=== PATIENT | male | born 1980 | race African-American/Black ===

== ENCOUNTER 2018-10-16 01:16 | Emergency (ER) | payer MEDICAID ==
[~2018-10-16] VITALS: Ht 182.9 cm; Wt 78.5 kg
[2018-10-16] MEDS ORDERED: HYDR8TAB2 PO (01:36)
[2018-10-16] MEDS ORDERED: INSU100V7 SQ (01:36)
[2018-10-16] MEDS ORDERED: HYDROCODONE/APAP 5-325MG TABLET ONE (02:08)
[2018-10-16] MEDS ORDERED: diphenhydrAMINE 50 MG CAPSULE ONE (02:08)
[2018-10-16] MEDS ORDERED: HYDROCODONE/APAP 10-325 MG TABLET PO ONE (02:15)
[2018-10-16] MEDS ORDERED: diphenhydrAMINE 50 MG CAPSULE PO ONE (02:15)
--- NOTE | 2018-10-16 02:17 | NUR ---
Patient given written and verbal discharge instructions. Patient verbalizes understanding of instructions. Patient is ambulatory with steady gait. Refuses offer of longterm placement. Patient given list of available shelters in surrounding area. Patient stated he's currently residing in some arranged living arrangement refuses to sign paper.
[2018-10-16] MEDS ORDERED: HYDROCODONE/APAP 10-325 MG TABLET ONE (02:27)
== END 2018-10-16 02:30 | disposition home or self-care (01) ==
LOC: ER 01:27
DX: D57.00 Hb-SS disease with crisis, unspecified (principal); G89.29 Other chronic pain; M25.512 Pain in left shoulder; M25.511 Pain in right shoulder; M25.521 Pain in right elbow; M25.522 Pain in left elbow; M25.551 Pain in right hip; M25.552 Pain in left hip; E10.9 Type 1 diabetes mellitus without complications; Z88.8 Allergy status to other drugs, medicaments and biological substances; Z88.5 Allergy status to narcotic agent; Z79.4 Long term (current) use of insulin; Z79.899 Other long term (current) drug therapy
CPT/HCPCS: 99283; Q0163; A4663

== ENCOUNTER 2023-12-13 14:42 | Emergency (ER) | payer MEDICAID ==
[~2023-12-13] VITALS: Ht 182.9 cm; Wt 72.6 kg
[~2023-12-13 14:42] MED LIST: HYDR8TAB2 PO; INSU100V7 SQ
[2023-12-13] MEDS ORDERED: diphenhydrAMINE 50 MG/1 ML VIAL ONE ×2 (15:26→17:58)
[2023-12-13] MEDS ORDERED: HYDROMORPHONE 2 MG/1 ML DISP.SYRIN ONE ×2 (15:26→16:21)
[2023-12-13] MEDS: IV NS 1000 ML 1,000 ML IV ONE ×2 (15:30→16:42)
[2023-12-13] MEDS: HYDROMORPHONE 1 MG/1 ML DISP.SYRIN IV ONE ×3 (15:33→18:12)
[2023-12-13] MEDS: diphenhydrAMINE 50 MG/1 ML VIAL IV ONE ×2 (15:33→18:10)
[2023-12-13 16:18] LABS: EOSINOPHILS # (AUTO) 0.1 K/uL (0.0-0.7); EOSINOPHILS % (AUTO) 0.7 % (0.0-7.0); HEMATOCRIT 27.3 % (36.7-47.1); HEMOGLOBIN 8.5 g/dL (12.5-16.3); LYMPHOCYTES # (AUTO) 0.1 K/uL (0.8-4.8); LYMPHOCYTES % (AUTO) 1.1 % (20.5-51.5); MEAN CORPUSCULAR HEMOGLOBIN 23.6 uug (23.8-33.4); MEAN CORPUSCULAR HGB CONC 31 g/dL (32.5-36.3); MEAN CORPUSCULAR VOLUME 75.5 fL (73.0-96.2); MONOCYTES % (AUTO) 9.1 % (0.0-11.0); NEUTROPHILS # (AUTO) 9.5 K/uL (1.8-8.9); NEUTROPHILS % (AUTO) 89.1 % (38.5-71.5); PLATELET COUNT (AUTO) 665 K/uL (152-348); RED BLOOD CELL COUNT(AUTO) 3.61 MIL/uL (4.06-5.63); RED CELL DISTRIBUTION WIDTH 20.4 % (12.1-16.2); WHITE BLOOD COUNT (AUTO) 10.7 K/uL (3.6-10.2)
[2023-12-13 16:22] LABS: DIFFERENTIAL COMMENT 1
[2023-12-13 16:24] LABS: CALCIUM 9.4 mg/dL (8.5-10.1); CREATININE 1.5 mg/dL (0.6-1.3); POTASSIUM 5.4 mmol/L (3.5-5.1)
[2023-12-13] MEDS ORDERED: HYDR-3980 PO (17:45)
[2023-12-13] MEDS ORDERED: HYDROMORPHONE 1 MG/1 ML DISP.SYRIN ONE (17:59)
[2023-12-13] MEDS ORDERED: ONDANSETRON 4 MG/2 ML VIAL ONE (18:04)
[2023-12-13 18:14] VITALS: BP 131/71; TEMP 98.3; O2SAT 96
== END 2023-12-13 18:39 | disposition home or self-care (01) ==
LOC: ER 14:43
DX: D57.00 Hb-SS disease with crisis, unspecified (principal); E10.22 Type 1 diabetes mellitus with diabetic chronic kidney disease; Z98.890 Other specified postprocedural states; N18.9 Chronic kidney disease, unspecified; Z79.4 Long term (current) use of insulin; Z79.891 Long term (current) use of opiate analgesic; Z88.5 Allergy status to narcotic agent; Z88.1 Allergy status to other antibiotic agents
CPT/HCPCS: 99284; 96374; 96361; 96375; 80048; 85025; 36415; 96376; J1200 ×2; J2405; J1170 ×3; J7040; A4606; A4663

== ENCOUNTER 2023-12-29 15:23 | Inpatient (IN) | payer MEDICAID ==
[~2023-12-29] VITALS: Ht 180.3 cm; Wt 81.6 kg
[~2023-12-29 15:23] MED LIST changes: +HYDR-3980 PO
[2023-12-29] MEDS ORDERED: diphenhydrAMINE 50 MG/1 ML VIAL ONE ×3 (16:06→21:23)
[2023-12-29] MEDS ORDERED: HYDROMORPHONE 2 MG/1 ML DISP.SYRIN ONE ×2 (16:06→17:40)
[2023-12-29 16:18] LABS: BASOPHILS # (AUTO) 0.1 K/UL (0.0-0.2); BASOPHILS % (AUTO) 1.5 % (0.0-2.0); EOSINOPHILS # (AUTO) 0.1 K/uL (0.0-0.7); EOSINOPHILS % (AUTO) 0.9 % (0.0-7.0); HEMATOCRIT 27.5 % (36.7-47.1); HEMOGLOBIN 8.5 g/dL (12.5-16.3); LYMPHOCYTES % (AUTO) 11.2 % (20.5-51.5); MEAN CORPUSCULAR HEMOGLOBIN 23.7 uug (23.8-33.4); MEAN CORPUSCULAR HGB CONC 31 g/dL (32.5-36.3); MEAN CORPUSCULAR VOLUME 76.5 fL (73.0-96.2); MONOCYTES # (AUTO) 0.6 K/uL (0.1-1.30); MONOCYTES % (AUTO) 6.4 % (0.0-11.0); NEUTROPHILS # (AUTO) 7.2 K/uL (1.8-8.9); PLATELET COUNT (AUTO) 570 K/uL (152-348); RED CELL DISTRIBUTION WIDTH 24.4 % (12.1-16.2)
[2023-12-29] MEDS: IV NS 1000 ML 1,000 ML IV ONE ×3 (16:18→17:49)
[2023-12-29] MEDS: HYDROMORPHONE 1 MG/1 ML DISP.SYRIN IV ONE ×2 (16:18→17:47)
[2023-12-29] MEDS: diphenhydrAMINE 50 MG/1 ML VIAL IV ONE ×2 (16:18→17:49)
[2023-12-29 16:31] LABS: CALCIUM 8.8 mg/dL (8.5-10.1); CREATININE 1.7 mg/dL (0.6-1.3); POTASSIUM 5.6 mmol/L (3.5-5.1)
[2023-12-29 16:32] LABS: DIFFERENTIAL COMMENT 1
[2023-12-29 17:07] LABS: BASOPHILS % (MANUAL) 0 % (0-2); EOSINOPHILS % (MANUAL) 1 % (0-8); LYMPHOCYTES % (MANUAL) 15 % (20-40); MONOCYTES % (MANUAL) 4 % (2-10); NEUTROPHILS % (MANUAL) 80 % (42-75)
[2023-12-29 17:30] LABS: IRON, SERUM 37 ug/dL (50-175)
[2023-12-29] MEDS ORDERED: REMEDY ESSENTIAL ZINC PASTE 113 GM TP PRN (18:00)
[2023-12-29] MEDS ORDERED: DEXTROSE 50% 50 ML DISP.SYRIN IV PRN (18:00)
[2023-12-29] MEDS ORDERED: MAGNESIUM HYDROXIDE 30 ML LIQUID UDC PO PRN (18:00)
[2023-12-29] MEDS ORDERED: ONDANSETRON 4 MG/2 ML VIAL IV PRN (18:00)
[2023-12-29] MEDS ORDERED: ACETAMINOPHEN 325 MG TABLET PO PRN (18:00)
[2023-12-29] MEDS ORDERED: HYDROCODONE/APAP 10-325 MG TABLET PO PRN (18:00)
[2023-12-29] MEDS: HYDROMORPHONE 1 MG/1 ML DISP.SYRIN IV PRN ×2 (19:56→21:30)
[2023-12-29] MEDS: BLOOD SUGAR DIAGNOSTIC 1 EACH STRIP VI SCH (20:11)
[2023-12-29] MEDS ORDERED: INSULIN REGULAR, HUMAN 1000 UNIT/10 ML VIAL ONE ×2 (20:15→20:29)
[2023-12-29] MEDS: INSULIN REGULAR, HUMAN 1000 UNIT/10 ML VIAL SQ PRN (20:23)
[2023-12-29] MEDS ORDERED: HYDROCODONE/APAP 10-325 MG TABLET PO SCH (21:00)
[2023-12-29] MEDS ORDERED: HYDROMORPHONE 1 MG/1 ML DISP.SYRIN ONE (21:29)
[2023-12-29] MEDS: diphenhydrAMINE 50 MG/1 ML VIAL IV PRN (21:30)
[2023-12-29 22:15] VITALS: BP 140/71; TEMP 98.6; O2SAT 100
[2023-12-29 23:00] VITALS: BP 105/77; O2SAT 100
[2023-12-29] MEDS: INSULIN REGULAR, HUMAN 100 UNITS in IV NORMAL SALINE 100 ML IV PRN (23:20)
[2023-12-29] MEDS: IV NS 1000 ML 1,000 ML IV PRN (23:36)
[2023-12-30] VITALS (18 sets, daily range): BP systolic 89–132; BP diastolic 62–85; TEMP 97.5–98.7; O2SAT 95–100
[2023-12-30] MEDS: BLOOD SUGAR DIAGNOSTIC 1 EACH STRIP VI SCH ×4 (00:26→19:55)
[2023-12-30] MEDS ORDERED: DEXTROSE 50% 50 ML DISP.SYRIN IV PRN ×2 (08:30→17:00)
[2023-12-30] MEDS ORDERED: INSULIN REGULAR, HUMAN 300 UNITS/3 ML VIAL SQ PRN (08:30)
[2023-12-30 09:05] LABS: ALBUMIN 2.7 g/dL (3.4-5.0); BILIRUBIN,TOTAL 0.5 mg/dL (0.2-1.0); CALCIUM 8.7 mg/dL (8.5-10.1); CREATININE 1.1 mg/dL (0.6-1.3); MAGNESIUM 1.9 mg/dL (1.8-2.4); POTASSIUM 4.9 mmol/L (3.5-5.1); TOTAL PROTEIN, SERUM 7.7 g/dL (6.4-8.2)
[2023-12-30] MEDS: diphenhydrAMINE 50 MG/1 ML VIAL IV PRN (09:30)
[2023-12-30 09:33] LABS: BASOPHILS # (AUTO) 0.2 K/UL (0.0-0.2); BASOPHILS % (AUTO) 2.1 % (0.0-2.0); EOSINOPHILS # (AUTO) 0.7 K/uL (0.0-0.7); EOSINOPHILS % (AUTO) 6.7 % (0.0-7.0); HEMATOCRIT 28.2 % (36.7-47.1); HEMOGLOBIN 8.8 g/dL (12.5-16.3); LYMPHOCYTES # (AUTO) 2.1 K/uL (0.8-4.8); LYMPHOCYTES % (AUTO) 19.1 % (20.5-51.5); MEAN CORPUSCULAR HEMOGLOBIN 23.7 uug (23.8-33.4); MEAN CORPUSCULAR HGB CONC 31 g/dL (32.5-36.3); MEAN CORPUSCULAR VOLUME 75.5 fL (73.0-96.2); MONOCYTES # (AUTO) 0.5 K/uL (0.1-1.30); MONOCYTES % (AUTO) 4.1 % (0.0-11.0); NEUTROPHILS # (AUTO) 7.5 K/uL (1.8-8.9); PLATELET COUNT (AUTO) 483 K/uL (152-348); RED BLOOD CELL COUNT(AUTO) 3.73 MIL/uL (4.06-5.63); RED CELL DISTRIBUTION WIDTH 23.2 % (12.1-16.2)
[2023-12-30] MEDS: HYDROMORPHONE 2 MG/1 ML DISP.SYRIN IV PRN (09:33)
[2023-12-30 09:38] LABS: DIFFERENTIAL COMMENT 1
[2023-12-30] MEDS: INSULIN REGULAR, HUMAN 1000 UNIT/10 ML VIAL SQ PRN ×2 (09:41→19:59)
[2023-12-30] MEDS: IV NS 1000 ML 1,000 ML IV PRN (15:25)
[2023-12-30] MEDS: INSULIN GLARGINE,HUM 300 UNITS/3 ML CARTRIDGE SQ SCH (20:00)
[2023-12-31 06:00] VITALS: BP 119/70; TEMP 98.4; O2SAT 97
[2023-12-31 07:57] VITALS: BP 134/77
[2023-12-31 10:27] LABS: BASOPHILS # (AUTO) 0.2 K/UL (0.0-0.2); BASOPHILS % (AUTO) 1.6 % (0.0-2.0); DIFFERENTIAL COMMENT 0; EOSINOPHILS # (AUTO) 0.7 K/uL (0.0-0.7); EOSINOPHILS % (AUTO) 6.1 % (0.0-7.0); HEMATOCRIT 30.3 % (36.7-47.1); HEMOGLOBIN 9.5 g/dL (12.5-16.3); LYMPHOCYTES # (AUTO) 3.8 K/uL (0.8-4.8); LYMPHOCYTES % (AUTO) 32.6 % (20.5-51.5); MEAN CORPUSCULAR HEMOGLOBIN 24.1 uug (23.8-33.4); MEAN CORPUSCULAR HGB CONC 32 g/dL (32.5-36.3); MEAN CORPUSCULAR VOLUME 76.5 fL (73.0-96.2); MONOCYTES # (AUTO) 0.5 K/uL (0.1-1.30); MONOCYTES % (AUTO) 4.4 % (0.0-11.0); NEUTROPHILS # (AUTO) 6.5 K/uL (1.8-8.9); NEUTROPHILS % (AUTO) 55.3 % (38.5-71.5); PLATELET COUNT (AUTO) 465 K/uL (152-348); RED BLOOD CELL COUNT(AUTO) 3.96 MIL/uL (4.06-5.63); RED CELL DISTRIBUTION WIDTH 23.8 % (12.1-16.2); WHITE BLOOD COUNT (AUTO) 11.8 K/uL (3.6-10.2)
[2023-12-31 10:28] LABS: CALCIUM 8.8 mg/dL (8.5-10.1); CREATININE 1.3 mg/dL (0.6-1.3); MAGNESIUM 1.7 mg/dL (1.8-2.4); PHOSPHOROUS 3.1 mg/dL (2.5-4.9); POTASSIUM 6.1 mmol/L (3.5-5.1)
[2023-12-31 11:37] VITALS: BP 118/60; TEMP 98.2; O2SAT 95
[2023-12-31 12:31] LABS: CALCIUM 8.9 mg/dL (8.5-10.1); CREATININE 1.2 mg/dL (0.6-1.3); POTASSIUM 4.8 mmol/L (3.5-5.1)
[2023-12-31] MEDS ORDERED: HYDROMORPHONE 4 MG/1 ML DISP.SYRIN IV PRN (12:45)
[2023-12-31] MEDS: diphenhydrAMINE 50 MG/1 ML VIAL IV PRN (13:15)
[2023-12-31] MEDS: HYDROMORPHONE 2 MG/1 ML DISP.SYRIN IV PRN (13:16)
[2023-12-31 15:56] VITALS: BP 118/58; TEMP 97.9; O2SAT 99
[2023-12-31 21:10] VITALS: BP 157/80; TEMP 97.9; O2SAT 96
[2024-01-01 12:09] VITALS: BP 112/75; TEMP 98.1; O2SAT 98
[2024-01-01] MEDS: INSULIN REGULAR, HUMAN 1000 UNIT/10 ML VIAL SQ ONE (12:15)
[2024-01-01] MEDS ORDERED: INSU100C SQ (13:20)
== END 2024-01-01 16:00 | disposition home or self-care (01) | DRG 420 ==
LOC: ER 15:24 → CCU 21:11 → MEDSURG3 12-30 18:00
PROVIDERS: ADMIT Nurse Practitioner Acute Care
DX: E10.69 Type 1 diabetes mellitus with other specified complication (principal); N17.0 Acute kidney failure with tubular necrosis; D57.419 Sickle-cell thalassemia, unspecified, with crisis; E87.5 Hyperkalemia; E87.1 Hypo-osmolality and hyponatremia; Z90.81 Acquired absence of spleen; Z59.02 Unsheltered homelessness; Z88.6 Allergy status to analgesic agent; Z88.5 Allergy status to narcotic agent; Z79.4 Long term (current) use of insulin; E61.1 Iron deficiency
CPT/HCPCS: 36415; 70030-TC; 83550; 83735; 84100; 85025; 86850; 86900; 86901; A4606; G0378; J1170; J1200; J1815; J7040

== ENCOUNTER 2024-01-06 00:24 | Inpatient (IN) | payer MEDICAID ==
[2024-01-06] VITALS (14 sets, daily range): BP systolic 118–146; BP diastolic 66–94; O2SAT 94
[~2024-01-06] VITALS: Ht 182.9 cm; Wt 72.6 kg
[~2024-01-06 00:24] MED LIST changes: -HYDR-3980 PO; +INSU100C SQ
[2024-01-06] MEDS ORDERED: HYDROMORPHONE 1 MG/1 ML DISP.SYRIN ONE ×3 (01:02→06:50)
[2024-01-06] MEDS ORDERED: diphenhydrAMINE 50 MG/1 ML VIAL ONE ×3 (01:02→06:49)
[2024-01-06] MEDS: diphenhydrAMINE 50 MG/1 ML VIAL IV ONE ×2 (01:15→01:42)
[2024-01-06] MEDS: ONDANSETRON 4 MG/2 ML VIAL IV ONE (01:16)
[2024-01-06] MEDS: IV NS 1000 ML 1,000 ML IV ONE ×2 (01:16→03:26)
[2024-01-06] MEDS: HYDROMORPHONE 1 MG/1 ML DISP.SYRIN IV ONE ×4 (01:16→04:19)
[2024-01-06] MEDS ORDERED: ONDANSETRON 4 MG/2 ML VIAL ONE ×2 (01:17→06:48)
[2024-01-06 01:31] LABS: *BILIRUBIN,URIN NEGATIVE (NEGATIVE); *BLOOD, URINE NEGATIVE (NEGATIVE); *CLARITY,URINE CLEAR (CLEAR); *COLOR,URINE YELLOW (YELLOW); *KETONES,URINE TRACE (NEGATIVE); *PROTEIN,URINE NEGATIVE (NEGATIVE); *UROBILINOGEN,URINE 0.2 E.U./dl (NORMAL); LEUKOCYTE ESTERASE ,URINE NEGATIVE (NEGATIVE); NITRITE, URINE NEGATIVE (NEGATIVE); PH,URINE 5.5 (5.0-8.0)
[2024-01-06 01:39] LABS: UGLUCOSE 2+ (NEGATIVE)
[2024-01-06 01:51] LABS: BACTERIA,URINE NONE SEEN /HPF (NONE SEEN); RBC,URINE NONE SEEN /HPF (0-3); SQUAMOUS EPITHELIAL CELL,UR FEW /HPF (NONE SEEN); WBC,URINE NONE SEEN /HPF (0-3)
[2024-01-06 01:53] LABS: BASOPHILS # (AUTO) 0.2 K/UL (0.0-0.2); BASOPHILS % (AUTO) 2.8 % (0.0-2.0); EOSINOPHILS % (AUTO) 0.3 % (0.0-7.0); HEMATOCRIT 27.8 % (36.7-47.1); HEMOGLOBIN 8.6 g/dL (12.5-16.3); LYMPHOCYTES # (AUTO) 0.8 K/uL (0.8-4.8); LYMPHOCYTES % (AUTO) 12.3 % (20.5-51.5); MEAN CORPUSCULAR HEMOGLOBIN 23.3 uug (23.8-33.4); MEAN CORPUSCULAR HGB CONC 31 g/dL (32.5-36.3); MEAN CORPUSCULAR VOLUME 75.3 fL (73.0-96.2); MONOCYTES # (AUTO) 0.6 K/uL (0.1-1.30); NEUTROPHILS # (AUTO) 5.2 K/uL (1.8-8.9); NEUTROPHILS % (AUTO) 76.6 % (38.5-71.5); PLATELET COUNT (AUTO) 682 K/uL (152-348); RED BLOOD CELL COUNT(AUTO) 3.69 MIL/uL (4.06-5.63); RED CELL DISTRIBUTION WIDTH 24.5 % (12.1-16.2); WHITE BLOOD COUNT (AUTO) 6.8 K/uL (3.6-10.2)
[2024-01-06 01:54] LABS: DIFFERENTIAL COMMENT 1
[2024-01-06 02:08] LABS: ALBUMIN 3.5 g/dL (3.4-5.0); BILIRUBIN,TOTAL 0.6 mg/dL (0.2-1.0); CALCIUM 9.9 mg/dL (8.5-10.1); CREATININE 2.2 mg/dL (0.6-1.3); MAGNESIUM 2.7 mg/dL (1.8-2.4); PHOSPHOROUS 5.9 mg/dL (2.5-4.9)
[2024-01-06] MEDS ORDERED: CEFEPIME HCL 1 G VIAL ONE (02:40)
[2024-01-06] MEDS: SODIUM BICARBONATE 8.4% 50 MEQ/50 ML DISP.SYRIN IV ONE (02:55)
[2024-01-06] MEDS: CEFEPIME HCL 1 G in IV DEXTROSE 5% 50 ML IV ONE (02:57)
[2024-01-06] MEDS: INSULIN REGULAR, HUMAN 1000 UNIT/10 ML VIAL IV ONE (02:57)
[2024-01-06] MEDS ORDERED: CALCIUM GLUCONATE 1 GM/10 ML VIAL IV ONE (03:29)
[2024-01-06] MEDS: CALCIUM GLUCONATE IV 1 GM in IV DEXTROSE 5% 50 ML IV ONE (03:40)
[2024-01-06] MEDS ORDERED: HYDROMORPHONE 1 MG/1 ML DISP.SYRIN IV PRN ×2 (04:15→05:45)
[2024-01-06] MEDS ORDERED: MAGNESIUM HYDROXIDE 30 ML LIQUID UDC PO PRN (04:15)
[2024-01-06] MEDS: IV NORMAL SALINE 1000 ML BAG IV ONE (04:15)
[2024-01-06] MEDS ORDERED: HYDROMORPHONE 2 MG/1 ML DISP.SYRIN ONE (04:21)
[2024-01-06] MEDS ORDERED: INSULIN REGULAR, HUMAN 1000 UNIT/10 ML VIAL ONE ×2 (05:23→05:41)
[2024-01-06] MEDS: INSULIN REGULAR, HUMAN 100 UNITS in IV NORMAL SALINE 100 ML IV ONE (05:52)
[2024-01-06] MEDS ORDERED: BLOOD SUGAR DIAGNOSTIC 1 EACH STRIP VI SCH ×2 (06:45→07:00)
[2024-01-06] MEDS: HYDROMORPHONE 1 MG/1 ML DISP.SYRIN IV PRN (06:59)
[2024-01-06] MEDS: ONDANSETRON 4 MG/2 ML VIAL IV PRN (07:00)
[2024-01-06] MEDS: diphenhydrAMINE 50 MG/1 ML VIAL IV PRN (07:00)
[2024-01-06] MEDS: BLOOD SUGAR DIAGNOSTIC 1 EACH STRIP VI SCH ×2 (07:59→12:18)
[2024-01-06] MEDS: INSULIN REGULAR, HUMAN 100 UNITS in IV NORMAL SALINE 100 ML IV PRN (08:00)
[2024-01-06] MEDS: PANTOPRAZOLE SODIUM 40 MG VIAL IV SCH (08:53)
[2024-01-06] MEDS ORDERED: DEXTROSE 50% 50 ML DISP.SYRIN IV PRN (12:00)
[2024-01-06] MEDS: IV 1/2NS 1000 ML 1,000 ML IV PRN (12:20)
[2024-01-06] MEDS: INSULIN REGULAR, HUMAN 1000 UNIT/10 ML VIAL SQ PRN (12:54)
[2024-01-06] MEDS: FOLIC ACID 1 MG TABLET PO SCH (12:54)
[2024-01-06] MEDS: AMLODIPINE 10 MG TABLET PO SCH (12:55)
[2024-01-06 15:34] LABS: RETICULOCYTE COUNT 1.7 % (0.4-2.2)
[2024-01-06] MEDS: INSULIN GLARGINE,HUM 300 UNITS/3 ML CARTRIDGE SQ SCH (20:43)
[2024-01-07] MEDS: PANTOPRAZOLE SODIUM 40 MG TABLET.DR PO SCH (07:00)
[2024-01-07 08:00] VITALS: BP 149/77; TEMP 97.6
[2024-01-07] MEDS: INSULIN REGULAR, HUMAN 300 UNITS/3 ML VIAL SQ PRN (08:18)
[2024-01-07] MEDS ORDERED: DEXTROSE 50% 50 ML DISP.SYRIN IV PRN (11:00)
[2024-01-07 11:43] LABS: CALCIUM 9.3 mg/dL (8.5-10.1); CREATININE 1.4 mg/dL (0.6-1.3)
[2024-01-07 11:45] LABS: POTASSIUM 5.3 mmol/L (3.5-5.1)
[2024-01-07 11:53] LABS: BASOPHILS # (AUTO) 0.1 K/UL (0.0-0.2); BASOPHILS % (AUTO) 0.5 % (0.0-2.0); EOSINOPHILS % (AUTO) 0.4 % (0.0-7.0); HEMATOCRIT 29.8 % (36.7-47.1); HEMOGLOBIN 9.4 g/dL (12.5-16.3); LYMPHOCYTES # (AUTO) 5.8 K/uL (0.8-4.8); LYMPHOCYTES % (AUTO) 50.3 % (20.5-51.5); MEAN CORPUSCULAR HEMOGLOBIN 23.2 uug (23.8-33.4); MEAN CORPUSCULAR HGB CONC 31 g/dL (32.5-36.3); MEAN CORPUSCULAR VOLUME 73.8 fL (73.0-96.2); MONOCYTES # (AUTO) 0.4 K/uL (0.1-1.30); MONOCYTES % (AUTO) 3.5 % (0.0-11.0); NEUTROPHILS # (AUTO) 5.2 K/uL (1.8-8.9); NEUTROPHILS % (AUTO) 45.3 % (38.5-71.5); PLATELET COUNT (AUTO) 522 K/uL (152-348); RED BLOOD CELL COUNT(AUTO) 4.04 MIL/uL (4.06-5.63); RED CELL DISTRIBUTION WIDTH 23.3 % (12.1-16.2); WHITE BLOOD COUNT (AUTO) 11.5 K/uL (3.6-10.2)
[2024-01-07 11:57] LABS: DIFFERENTIAL COMMENT 1
[2024-01-07 12:00] VITALS: BP 134/93; TEMP 98
[2024-01-07] MEDS: BLOOD SUGAR DIAGNOSTIC 1 EACH STRIP VI SCH (12:07)
[2024-01-07] MEDS: INSULIN REGULAR, HUMAN 1000 UNIT/10 ML VIAL SQ PRN (12:25)
[2024-01-07 14:24] LABS: MAGNESIUM 2.3 mg/dL (1.8-2.4)
[2024-01-07 15:15] VITALS: BP 122/75; TEMP 98
[2024-01-07] MEDS: HYDROMORPHONE 2 MG/1 ML DISP.SYRIN IV PRN (15:23)
[2024-01-07 17:21] LABS: BAND % (MANUAL) 10 % (0-10); EOSINOPHILS % (MANUAL) 1 % (0-8); LYMPHOCYTES % (MANUAL) 28 % (20-40); METAMYELOCYTES % 1 % (0-1); MONOCYTES % (MANUAL) 4 % (2-10); NEUTROPHILS % (MANUAL) 52 % (42-75)
[2024-01-07 17:22] LABS: ANISOCYTOSIS 3+; HYPOCHROMASIA 1+; PLATELET ESTIMATE ADEQUATE; TARGET CELLS 2+
[2024-01-07 19:00] VITALS: BP 127/87; TEMP 98.5; O2SAT 95
[2024-01-07] MEDS: INSULIN GLARGINE,HUM 300 UNITS/3 ML CARTRIDGE SQ SCH (21:18)
[2024-01-08] VITALS: BP 121/61; TEMP 98.1; O2SAT 96
[2024-01-08 04:00] VITALS: BP 117/74; TEMP 98.1; O2SAT 96
[2024-01-08] MEDS ORDERED: HYDROMORPHONE 1 MG/1 ML DISP.SYRIN ONE (06:44)
[2024-01-08 07:25] VITALS: BP 126/76; TEMP 98.3; O2SAT 96
[2024-01-08 08:31] LABS: CALCIUM 9.3 mg/dL (8.5-10.1); CREATININE 1.2 mg/dL (0.6-1.3); MAGNESIUM 1.8 mg/dL (1.8-2.4); PHOSPHOROUS 3.2 mg/dL (2.5-4.9)
[2024-01-08 08:44] LABS: BASOPHILS # (AUTO) 0.1 K/UL (0.0-0.2); BASOPHILS % (AUTO) 0.7 % (0.0-2.0); EOSINOPHILS # (AUTO) 0.2 K/uL (0.0-0.7); EOSINOPHILS % (AUTO) 1.9 % (0.0-7.0); HEMATOCRIT 30.3 % (36.7-47.1); HEMOGLOBIN 9.5 g/dL (12.5-16.3); LYMPHOCYTES # (AUTO) 4.8 K/uL (0.8-4.8); LYMPHOCYTES % (AUTO) 56.3 % (20.5-51.5); MEAN CORPUSCULAR HEMOGLOBIN 23.2 uug (23.8-33.4); MEAN CORPUSCULAR HGB CONC 31 g/dL (32.5-36.3); MEAN CORPUSCULAR VOLUME 73.8 fL (73.0-96.2); MONOCYTES # (AUTO) 0.3 K/uL (0.1-1.30); MONOCYTES % (AUTO) 3.4 % (0.0-11.0); NEUTROPHILS # (AUTO) 3.2 K/uL (1.8-8.9); NEUTROPHILS % (AUTO) 37.7 % (38.5-71.5); PLATELET COUNT (AUTO) 528 K/uL (152-348); RED CELL DISTRIBUTION WIDTH 23.3 % (12.1-16.2); WHITE BLOOD COUNT (AUTO) 8.5 K/uL (3.6-10.2)
[2024-01-08 08:51] LABS: THYROID STIMULATING HORMONE 2.191 mIU/mL (0.358-3.740)
[2024-01-08 08:53] LABS: DIFFERENTIAL COMMENT 1
[2024-01-08 16:32] VITALS: BP 113/73; TEMP 98.5; O2SAT 94
[2024-01-08 16:56] LABS: EOSINOPHILS % (MANUAL) 3 % (0-8); LYMPHOCYTES % (MANUAL) 29 % (20-40); MONOCYTES % (MANUAL) 5 % (2-10); NEUTROPHILS % (MANUAL) 63 % (42-75)
[2024-01-08 16:57] LABS: ANISOCYTOSIS 1+; HYPOCHROMASIA 1+; PLATELET ESTIMATE INCREASED
[2024-01-08 16:58] LABS: OVALOCYTES 1+; TARGET CELLS 1+; TEAR DROP CELLS 1+
[2024-01-08 19:00] VITALS: BP 114/71; TEMP 97.4; O2SAT 95
[2024-01-09] VITALS: BP 126/75; TEMP 98.3
[2024-01-09 07:48] VITALS: BP 116/77; TEMP 98.1; O2SAT 95
[2024-01-09 08:01] LABS: BASOPHILS # (AUTO) 0.1 K/UL (0.0-0.2); BASOPHILS % (AUTO) 1.1 % (0.0-2.0); EOSINOPHILS # (AUTO) 0.2 K/uL (0.0-0.7); EOSINOPHILS % (AUTO) 2.3 % (0.0-7.0); HEMATOCRIT 29.4 % (36.7-47.1); HEMOGLOBIN 9.5 g/dL (12.5-16.3); LYMPHOCYTES % (AUTO) 67.6 % (20.5-51.5); MEAN CORPUSCULAR HEMOGLOBIN 23.7 uug (23.8-33.4); MEAN CORPUSCULAR HGB CONC 32 g/dL (32.5-36.3); MEAN CORPUSCULAR VOLUME 73.6 fL (73.0-96.2); MONOCYTES # (AUTO) 0.4 K/uL (0.1-1.30); NEUTROPHILS # (AUTO) 2.2 K/uL (1.8-8.9); PLATELET COUNT (AUTO) 500 K/uL (152-348); RED CELL DISTRIBUTION WIDTH 23.5 % (12.1-16.2); WHITE BLOOD COUNT (AUTO) 8.8 K/uL (3.6-10.2)
[2024-01-09 08:34] LABS: DIFFERENTIAL COMMENT 1
[2024-01-09 08:42] VITALS: BP 116/77
[2024-01-09] MEDS: diphenhydrAMINE 50 MG/1 ML VIAL IV PRN (14:10)
[2024-01-09 14:11] LABS: *IMMUNOGLOBULIN G, SERUM 2127 mg/dL (603-1613); IMMUNOGLOBULIN A, SERUM 477 mg/dL (90-386); IMMUNOGLOBULIN M, SERUM 87 mg/dL (20-172)
[2024-01-09] MEDS: HYDROMORPHONE 2 MG/1 ML DISP.SYRIN IV PRN (14:11)
[2024-01-12 08:06] LABS: A/G RATIO 0.7 (0.7-1.7); ALBUMIN 3.2 g/dL (2.9-4.4); ALPHA-1-GLOBULIN 0.3 g/dL (0.0-0.4); ALPHA-2-GLOBULIN 0.9 g/dL (0.4-1.0); BETA GLOBULIN 1.4 g/dL (0.7-1.3); GLOBULIN, TOTAL 4.6 g/dL (2.2-3.9); M-SPIKE Not Observed g/dL (Not Observed)
== END 2024-01-09 14:35 | disposition left against medical advice (07) | DRG 420 ==
LOC: ER 00:28 → CCU 04:11 → TELE3 01-07 18:57 → MEDSURG3 01-09 08:40
PROC: 05HB33Z Insertion of Infusion Device into Right Basilic Vein, Percutaneous Approach (ICD-10-PCS; principal; 2024-01-06)
DX: E11.10 Type 2 diabetes mellitus with ketoacidosis without coma (principal); N17.0 Acute kidney failure with tubular necrosis; D57.419 Sickle-cell thalassemia, unspecified, with crisis; E87.0 Hyperosmolality and hypernatremia; K92.0 Hematemesis; E87.1 Hypo-osmolality and hyponatremia; E87.5 Hyperkalemia; G89.4 Chronic pain syndrome; R00.0 Tachycardia, unspecified; D72.829 Elevated white blood cell count, unspecified; D75.839 Thrombocytosis, unspecified; Z53.29 Procedure and treatment not carried out because of patient's decision for other reasons; Z90.81 Acquired absence of spleen; Z79.4 Long term (current) use of insulin; Z88.6 Allergy status to analgesic agent; Z88.5 Allergy status to narcotic agent; Z59.02 Unsheltered homelessness; Z91.199 Patient's noncompliance with other medical treatment and regimen due to unspecified reason
CPT/HCPCS: 36415; 70030-TC; 71045; 82746; 82784; 83550; 83735; 84100; 84155; 84165; 84443; 84484; 85025; 85610; 86334; 87040; 93005; A4606; A4663; G0378; J0610; J0692; J1170; J1200; J1815; J2405; J2470; J3490; J7040

== ENCOUNTER 2024-01-19 09:55 | Emergency (ER) | payer MEDICAID, OTHER ==
[~2024-01-19] VITALS: Ht 182.9 cm; Wt 73.9 kg
[2024-01-19] MEDS: IV NORMAL SALINE 1000 ML BAG IV ONE (10:46)
[2024-01-19] MEDS ORDERED: diphenhydrAMINE 50 MG/1 ML VIAL ONE ×2 (11:02→12:14)
[2024-01-19] MEDS ORDERED: ONDANSETRON 4 MG/2 ML VIAL ONE (11:02)
[2024-01-19] MEDS ORDERED: HYDROMORPHONE 1 MG/1 ML DISP.SYRIN ONE ×2 (11:03→12:14)
[2024-01-19 11:08] LABS: BASOPHILS # (AUTO) 0.1 K/UL (0.0-0.2); BASOPHILS % (AUTO) 0.6 % (0.0-2.0); EOSINOPHILS # (AUTO) 0.2 K/uL (0.0-0.7); EOSINOPHILS % (AUTO) 1.8 % (0.0-7.0); HEMATOCRIT 26.9 % (36.7-47.1); HEMOGLOBIN 8.5 g/dL (12.5-16.3); LYMPHOCYTES # (AUTO) 1.9 K/uL (0.8-4.8); LYMPHOCYTES % (AUTO) 18.6 % (20.5-51.5); MEAN CORPUSCULAR HEMOGLOBIN 22.7 uug (23.8-33.4); MEAN CORPUSCULAR HGB CONC 32 g/dL (32.5-36.3); MEAN CORPUSCULAR VOLUME 72.1 fL (73.0-96.2); MONOCYTES # (AUTO) 0.8 K/uL (0.1-1.30); MONOCYTES % (AUTO) 7.2 % (0.0-11.0); NEUTROPHILS # (AUTO) 7.5 K/uL (1.8-8.9); NEUTROPHILS % (AUTO) 71.8 % (38.5-71.5); PLATELET COUNT (AUTO) 232 K/uL (152-348); RED BLOOD CELL COUNT(AUTO) 3.73 MIL/uL (4.06-5.63); RED CELL DISTRIBUTION WIDTH 22.8 % (12.1-16.2); WHITE BLOOD COUNT (AUTO) 10.4 K/uL (3.6-10.2)
[2024-01-19] MEDS: ONDANSETRON 4 MG/2 ML VIAL IV ONE (11:10)
[2024-01-19] MEDS: HYDROMORPHONE 1 MG/1 ML DISP.SYRIN IV ONE ×2 (11:10→12:24)
[2024-01-19] MEDS: diphenhydrAMINE 50 MG/1 ML VIAL IV ONE ×2 (11:10→12:24)
[2024-01-19 11:11] LABS: DIFFERENTIAL COMMENT 1
[2024-01-19 11:13] LABS: AMMONIA 13 umol/L (11-32)
[2024-01-19 11:23] LABS: ALANINE AMINOTRANSFERASE 17 U/L (16-63); ALBUMIN 3.1 g/dL (3.4-5.0); ALKALINE PHOSPHATASE 111 U/L (50-136); ASPARTATE AMINOTRANSFERASE 15 U/L (15-37); BILIRUBIN,DIRECT 0.1 mg/dL (0.0-0.2); BILIRUBIN,TOTAL 0.6 mg/dL (0.2-1.0); CARBON DIOXIDE 25 mmol/L (21-32); CHLORIDE 99 mmol/L (98-107); CREATININE 1.3 mg/dL (0.6-1.3); GLUCOSE 364 mg/dL (74-106); POTASSIUM 4.3 mmol/L (3.5-5.1); SODIUM SERUM 134 mmol/L (136-145); TOTAL PROTEIN, SERUM 7.9 g/dL (6.4-8.2); UREA NITROGEN, BLOOD 16 mg/dL (7-18)
[2024-01-19] MEDS ORDERED: HUM INSULIN NPH/REG INSULIN HM 70/30 1000 UNITS/10 ML VIAL SQ ONE ×2 (11:30→11:53)
[2024-01-19] MEDS: INSULIN REGULAR, HUMAN 1000 UNIT/10 ML VIAL SQ ONE (11:57)
[2024-01-19] MEDS ORDERED: HYDR-3980 PO (12:08)
[2024-01-19] MEDS ORDERED: INSULIN REGULAR, HUMAN 1000 UNIT/10 ML VIAL ONE (12:22)
[2024-01-19] MEDS ORDERED: HEPARIN SODIUM,PORCINE/PF 500 UNIT/5 ML SYR ONE (12:58)
[2024-01-19] MEDS: HEPARIN SODIUM,PORCINE/PF 50 UNIT/5 ML SYR IV ONE (13:06)
[2024-01-19 13:10] VITALS: BP 125/78; TEMP 97.3; O2SAT 98
[2024-01-20] MEDS ORDERED: NALO4SPR BNOSTRILS (08:30)
== END 2024-01-19 13:10 | disposition home or self-care (01) ==
LOC: ER 09:55
DX: D57.00 Hb-SS disease with crisis, unspecified (principal); E10.9 Type 1 diabetes mellitus without complications; Z79.891 Long term (current) use of opiate analgesic; Z90.49 Acquired absence of other specified parts of digestive tract; Z79.899 Other long term (current) drug therapy; Z60.2 Problems related to living alone; Z88.5 Allergy status to narcotic agent; Z88.1 Allergy status to other antibiotic agents
CPT/HCPCS: 99285; 96374; 96375; 71045; 96361; 80076; 80048; 82140; 82962; 85025; 87040; 87077; 84484; 36415; 93005; 96376; 96372; 83605; J1642 ×2; J1200 ×2; J2405; J1170 ×2; J1815; J7040; A4606; A4663

== ENCOUNTER 2024-01-20 05:14 | Emergency (ER) | payer OTHER ==
[~2024-01-20] VITALS: Ht 182.9 cm; Wt 73.9 kg
[~2024-01-20 05:14] MED LIST changes: +HYDR-3980 PO; -HYDR8TAB2 PO; -INSU100C SQ; -INSU100V7 SQ
[2024-01-20] MEDS ORDERED: ONDANSETRON 4 MG/2 ML VIAL ONE (06:11)
[2024-01-20] MEDS ORDERED: HYDROMORPHONE 1 MG/1 ML DISP.SYRIN ONE (06:12)
[2024-01-20] MEDS ORDERED: diphenhydrAMINE 50 MG/1 ML VIAL ONE (06:25)
[2024-01-20] MEDS: diphenhydrAMINE 50 MG/1 ML VIAL IV ONE (06:35)
[2024-01-20] MEDS: HYDROMORPHONE 1 MG/1 ML DISP.SYRIN IV ONE (06:35)
[2024-01-20] MEDS: ONDANSETRON 4 MG/2 ML VIAL IV ONE ×2 (06:35→07:03)
[2024-01-20] MEDS ORDERED: HUM INSULIN NPH/REG INSULIN HM 70/30 1000 UNITS/10 ML VIAL SQ ONE (06:45)
[2024-01-20] MEDS: INSULIN REGULAR, HUMAN 1000 UNIT/10 ML VIAL IV ONE (06:53)
[2024-01-20] MEDS: IV NS 1000 ML 1,000 ML IV ONE (07:04)
[2024-01-20 07:51] LABS: *AMPHETAMINE, URINE POSITIVE (NEGATIVE); *BARBITURATE, URINE NEGATIVE (NEGATIVE); *BENZODIAZEPINE, URINE NEGATIVE (NEGATIVE); *CANNABINOID, URINE POSITIVE (NEGATIVE); *COCCAINE, URINE NEGATIVE (NEGATIVE); *OPIATE, URINE POSITIVE (NEGATIVE); *PHENCYCLIDINE SCREEN,URINE POSITIVE (NEGATIVE); FENTANYL, URINE NEGATIVE (NEGATIVE)
[2024-01-20 07:53] LABS: *BILIRUBIN,URIN NEGATIVE (NEGATIVE); *BLOOD, URINE NEGATIVE (NEGATIVE); *CLARITY,URINE CLEAR (CLEAR); *COLOR,URINE YELLOW (YELLOW); *KETONES,URINE NEGATIVE (NEGATIVE); *PROTEIN,URINE NEGATIVE (NEGATIVE); *UROBILINOGEN,URINE 0.2 E.U./dl (NORMAL); LEUKOCYTE ESTERASE ,URINE NEGATIVE (NEGATIVE); NITRITE, URINE NEGATIVE (NEGATIVE); UGLUCOSE 3+ (NEGATIVE)
[2024-01-20 07:56] LABS: BACTERIA,URINE FEW /HPF (NONE SEEN); WBC,URINE 0-3 /HPF (0-3)
[2024-01-20] MEDS ORDERED: NALO4SPR BNOSTRILS (08:30)
[2024-01-20] MEDS ORDERED: HEPARIN SODIUM,PORCINE/PF 500 UNIT/5 ML SYR ONE (08:48)
[2024-01-20] MEDS: HEPARIN SODIUM,PORCINE/PF 50 UNIT/5 ML SYR IV ONE (09:02)
[2024-01-20 09:12] VITALS: BP 129/78; O2SAT 99
== END 2024-01-20 09:13 | disposition home or self-care (01) ==
LOC: ER 05:20
DX: G89.29 Other chronic pain (principal); D57.00 Hb-SS disease with crisis, unspecified; E11.9 Type 2 diabetes mellitus without complications; R06.02 Shortness of breath; Z90.49 Acquired absence of other specified parts of digestive tract; Z79.891 Long term (current) use of opiate analgesic; Z60.2 Problems related to living alone; Z88.5 Allergy status to narcotic agent; Z88.1 Allergy status to other antibiotic agents
CPT/HCPCS: 99285; 96374; 96375; 71045; 82962; 93005; 80307; 98960; 81001; J1642; J1200; J1815; J2405; J1170; J7040

== ENCOUNTER 2024-01-20 19:47 | Inpatient (IN) | payer OTHER ==
[~2024-01-20] VITALS: Ht 182.9 cm; Wt 73.9 kg
[~2024-01-20 19:47] MED LIST changes: +NALO4SPR BNOSTRILS
[2024-01-20] MEDS ORDERED: diphenhydrAMINE 50 MG/1 ML VIAL ONE (20:39)
[2024-01-20] MEDS: HYDROMORPHONE 1 MG/1 ML DISP.SYRIN IV ONE ×2 (20:40→22:22)
[2024-01-20] MEDS: diphenhydrAMINE 50 MG/1 ML VIAL IV ONE (20:40)
[2024-01-20] MEDS ORDERED: HYDROMORPHONE 2 MG/1 ML DISP.SYRIN ONE (20:40)
[2024-01-20 20:57] LABS: BASOPHILS # (AUTO) 0.1 K/UL (0.0-0.2); BASOPHILS % (AUTO) 1.5 % (0.0-2.0); EOSINOPHILS # (AUTO) 0.1 K/uL (0.0-0.7); EOSINOPHILS % (AUTO) 1.2 % (0.0-7.0); HEMATOCRIT 27.2 % (36.7-47.1); HEMOGLOBIN 8.3 g/dL (12.5-16.3); LYMPHOCYTES # (AUTO) 0.9 K/uL (0.8-4.8); LYMPHOCYTES % (AUTO) 9.4 % (20.5-51.5); MEAN CORPUSCULAR HEMOGLOBIN 22.8 uug (23.8-33.4); MEAN CORPUSCULAR HGB CONC 31 g/dL (32.5-36.3); MEAN CORPUSCULAR VOLUME 74.4 fL (73.0-96.2); MONOCYTES # (AUTO) 1.2 K/uL (0.1-1.30); MONOCYTES % (AUTO) 12.6 % (0.0-11.0); NEUTROPHILS # (AUTO) 7.3 K/uL (1.8-8.9); NEUTROPHILS % (AUTO) 75.3 % (38.5-71.5); PLATELET COUNT (AUTO) 332 K/uL (152-348); RED BLOOD CELL COUNT(AUTO) 3.66 MIL/uL (4.06-5.63); RED CELL DISTRIBUTION WIDTH 23.9 % (12.1-16.2); WHITE BLOOD COUNT (AUTO) 9.6 K/uL (3.6-10.2)
[2024-01-20 21:00] LABS: DIFFERENTIAL COMMENT 1
[2024-01-20 21:10] LABS: ALANINE AMINOTRANSFERASE 13 U/L (16-63); ALBUMIN 2.7 g/dL (3.4-5.0); ALKALINE PHOSPHATASE 117 U/L (50-136); ASPARTATE AMINOTRANSFERASE 7 U/L (15-37); BILIRUBIN,TOTAL 0.5 mg/dL (0.2-1.0); CALCIUM 8.6 mg/dL (8.5-10.1); CARBON DIOXIDE 23 mmol/L (21-32); CHLORIDE 94 mmol/L (98-107); POTASSIUM 5.1 mmol/L (3.5-5.1); SODIUM SERUM 128 mmol/L (136-145); TOTAL PROTEIN, SERUM 7.4 g/dL (6.4-8.2); UREA NITROGEN, BLOOD 22 mg/dL (7-18)
[2024-01-20 21:19] LABS: GLUCOSE 854 mg/dL (74-106)
[2024-01-20 21:20] LABS: ACETONE, SERUM NEGATIVE (NEGATIVE)
[2024-01-20] MEDS ORDERED: HYDROMORPHONE 1 MG/1 ML DISP.SYRIN ONE (22:15)
[2024-01-20] MEDS ORDERED: INSULIN NPH 1,000 UNITS/10 ML VIAL SQ ONE (22:15)
[2024-01-20] MEDS ORDERED: POTASSIUM CHLORIDE 20 MEQ TAB.PRT.SR ONE (22:15)
[2024-01-20] MEDS: POTASSIUM CHLORIDE 20 MEQ TAB.PRT.SR PO ONE (22:20)
[2024-01-20] MEDS: INSULIN REGULAR, HUMAN 1000 UNIT/10 ML VIAL IV ONE (22:23)
[2024-01-20] MEDS ORDERED: levoFLOXacin 750MG/D5W 150 ML IV ONE (22:36)
[2024-01-20] MEDS: IV NORMAL SALINE 1000 ML BAG IV ONE (22:42)
[2024-01-20] MEDS: levoFLOXacin 750 MG/D5W 150 ML PIGGYBACK IV ONE (22:53)
[2024-01-21] VITALS (8 sets, daily range): BP systolic 107–144; BP diastolic 69–92; TEMP 97.3–98.8; O2SAT 90–100
[2024-01-21] MEDS ORDERED: ONDANSETRON 4 MG/2 ML VIAL IV PRN (00:45)
[2024-01-21] MEDS ORDERED: ACETAMINOPHEN 325 MG TABLET PO PRN (00:45)
[2024-01-21] MEDS ORDERED: MAGNESIUM HYDROXIDE 30 ML LIQUID UDC PO PRN (00:45)
[2024-01-21] MEDS ORDERED: REMEDY ESSENTIAL ZINC PASTE 113 GM TP PRN (00:45)
[2024-01-21] MEDS: diphenhydrAMINE 50 MG/1 ML VIAL IV PRN (01:24)
[2024-01-21] MEDS: HYDROMORPHONE 1 MG/1 ML DISP.SYRIN IV PRN ×2 (01:24→13:39)
[2024-01-21] MEDS: IV NS 1000 ML 1,000 ML IV PRN (06:00)
[2024-01-21 06:47] LABS: HEMATOCRIT 21.8 % (36.7-47.1); RED BLOOD CELL COUNT(AUTO) 2.98 MIL/uL (4.06-5.63); WHITE BLOOD COUNT (AUTO) 8.1 K/uL (3.6-10.2)
[2024-01-21 06:50] LABS: BASOPHILS # (AUTO) 0.1 K/UL (0.0-0.2); BASOPHILS % (AUTO) 1.2 % (0.0-2.0); EOSINOPHILS # (AUTO) 0.3 K/uL (0.0-0.7); EOSINOPHILS % (AUTO) 3.3 % (0.0-7.0); LYMPHOCYTES # (AUTO) 2.2 K/uL (0.8-4.8); LYMPHOCYTES % (AUTO) 26.6 % (20.5-51.5); MEAN CORPUSCULAR HGB CONC 31 g/dL (32.5-36.3); MEAN CORPUSCULAR VOLUME 73.4 fL (73.0-96.2); MONOCYTES # (AUTO) 0.7 K/uL (0.1-1.30); MONOCYTES % (AUTO) 8.6 % (0.0-11.0); NEUTROPHILS # (AUTO) 4.9 K/uL (1.8-8.9); NEUTROPHILS % (AUTO) 60.3 % (38.5-71.5); PLATELET COUNT (AUTO) 269 K/uL (152-348); RED CELL DISTRIBUTION WIDTH 23.2 % (12.1-16.2)
[2024-01-21] MEDS: PANTOPRAZOLE SODIUM 40 MG TABLET.DR PO SCH (07:00)
[2024-01-21 07:08] LABS: ALBUMIN 1.9 g/dL (3.4-5.0); BILIRUBIN,DIRECT 0.2 mg/dL (0.0-0.2); BILIRUBIN,TOTAL 0.4 mg/dL (0.2-1.0); MAGNESIUM 1.5 mg/dL (1.8-2.4); PHOSPHOROUS 2.6 mg/dL (2.5-4.9); POTASSIUM 4.1 mmol/L (3.5-5.1); TOTAL PROTEIN, SERUM 5.3 g/dL (6.4-8.2)
[2024-01-21 07:19] LABS: THYROID STIMULATING HORMONE 1.559 mIU/mL (0.358-3.740)
[2024-01-21 07:24] LABS: CALCIUM 6.8 mg/dL (8.5-10.1)
[2024-01-21] MEDS ORDERED: INSULIN REGULAR, HUMAN 1000 UNIT/10 ML VIAL SQ SCH (07:30)
[2024-01-21] MEDS: BLOOD SUGAR DIAGNOSTIC 1 EACH STRIP VI SCH ×2 (07:34→12:17)
[2024-01-21] MEDS ORDERED: DEXTROSE 50% 50 ML DISP.SYRIN IV PRN (07:45)
[2024-01-21 08:17] LABS: DIFFERENTIAL COMMENT 1
[2024-01-21 08:19] LABS: HEMOGLOBIN 6.9 g/dL (12.5-16.3)
[2024-01-21] MEDS: INSULIN REGULAR, HUMAN 1000 UNIT/10 ML VIAL SQ PRN (09:11)
[2024-01-21] MEDS: MAGNESIUM SULFATE/D5W 100 ML IV SCH (10:45)
[2024-01-21] MEDS: levoFLOXacin 500 MG/D5W 500 MG in PREMIXED 1 EACH IV SCH (20:14)
[2024-01-21] MEDS: INSULIN GLARGINE,HUM 300 UNITS/3 ML CARTRIDGE SQ SCH (21:18)
[2024-01-21] MEDS: INSULIN REGULAR, HUMAN 300 UNITS/3 ML VIAL SQ PRN (21:20)
[2024-01-21 21:55] LABS: EOSINOPHILS % (MANUAL) 5 % (0-8); LYMPHOCYTES % (MANUAL) 20 % (20-40); MONOCYTES % (MANUAL) 9 % (2-10); NEUTROPHILS % (MANUAL) 66 % (42-75); PLATELET ESTIMATE ADEQUATE
[2024-01-21 21:56] LABS: ANISOCYTOSIS 2+
[2024-01-21 21:57] LABS: HYPOCHROMASIA 1+
[2024-01-21 21:58] LABS: TEAR DROP CELLS 1+
[2024-01-22 00:06] VITALS: BP 122/76; TEMP 97.4
[2024-01-22] MEDS ORDERED: levoFLOXacin 500 MG TABLET PO SCH (21:00)
== END 2024-01-22 06:22 | disposition left against medical advice (07) | DRG 662 ==
LOC: ER 19:49 → MEDSURG3 22:51
PROVIDERS: ADMIT Nurse Practitioner Family; ATTEND Nurse Practitioner Family
PROC: 30243N1 Transfusion of Nonautologous Red Blood Cells into Central Vein, Percutaneous Approach (ICD-10-PCS; principal; 2024-01-21)
DX: D57.419 Sickle-cell thalassemia, unspecified, with crisis (principal); E44.0 Moderate protein-calorie malnutrition; N17.9 Acute kidney failure, unspecified; E87.1 Hypo-osmolality and hyponatremia; E88.09 Other disorders of plasma-protein metabolism, not elsewhere classified; E10.65 Type 1 diabetes mellitus with hyperglycemia; F17.210 Nicotine dependence, cigarettes, uncomplicated; G89.4 Chronic pain syndrome; Z59.02 Unsheltered homelessness; Z79.4 Long term (current) use of insulin; Z53.29 Procedure and treatment not carried out because of patient's decision for other reasons; Z90.81 Acquired absence of spleen
CPT/HCPCS: 36415; 70030-TC; 71045; 83735; 84100; 84443; 85025; 86850; 86900; 86901; 86920; 87040; 87077; A4606; A4663; G0378; J1170; J1200; J1815; J1956; J3475; J7040; P9016

== ENCOUNTER 2024-03-24 06:40 | Inpatient (IN) | payer MEDICAID, OTHER ==
[~2024-03-24] VITALS: Ht 182.9 cm; Wt 33.6 kg
[2024-03-24] MEDS ORDERED: ONDANSETRON 4 MG/2 ML VIAL ONE (07:20)
[2024-03-24] MEDS ORDERED: HYDROMORPHONE 2 MG/1 ML DISP.SYRIN ONE ×4 (07:20→11:47)
[2024-03-24] MEDS: IV NS 1000 ML 1,000 ML IV ONE ×2 (07:21→09:09)
[2024-03-24] MEDS: ONDANSETRON 4 MG/2 ML VIAL IV ONE (07:22)
[2024-03-24] MEDS: HYDROMORPHONE 1 MG/1 ML DISP.SYRIN IV ONE ×4 (07:22→11:59)
[2024-03-24] MEDS ORDERED: diphenhydrAMINE 50 MG/1 ML VIAL ONE ×4 (07:26→11:47)
[2024-03-24] MEDS: diphenhydrAMINE 50 MG/1 ML VIAL IV ONE ×5 (07:35→18:41)
[2024-03-24 08:25] LABS: CALCIUM 10.1 mg/dL (8.5-10.1); CARBON DIOXIDE 24 mmol/L (21-32); CHLORIDE 94 mmol/L (98-107); CREATININE 1.5 mg/dL (0.6-1.3); POTASSIUM 5.2 mmol/L (3.5-5.1); SODIUM SERUM 130 mmol/L (136-145); UREA NITROGEN, BLOOD 22 mg/dL (7-18)
[2024-03-24 08:30] LABS: BASOPHILS # (AUTO) 0.2 K/UL (0.0-0.2); BASOPHILS % (AUTO) 1.6 % (0.0-2.0); EOSINOPHILS % (AUTO) 0.1 % (0.0-7.0); GLUCOSE 632 mg/dL (74-106); HEMATOCRIT 31.1 % (36.7-47.1); LYMPHOCYTES # (AUTO) 1.2 K/uL (0.8-4.8); LYMPHOCYTES % (AUTO) 10.8 % (20.5-51.5); MEAN CORPUSCULAR HEMOGLOBIN 24.7 uug (23.8-33.4); MEAN CORPUSCULAR HGB CONC 32 g/dL (32.5-36.3); MEAN CORPUSCULAR VOLUME 76.8 fL (73.0-96.2); MONOCYTES # (AUTO) 0.6 K/uL (0.1-1.30); MONOCYTES % (AUTO) 5.4 % (0.0-11.0); NEUTROPHILS # (AUTO) 9.2 K/uL (1.8-8.9); NEUTROPHILS % (AUTO) 82.1 % (38.5-71.5); PLATELET COUNT (AUTO) 560 K/uL (152-348); RED BLOOD CELL COUNT(AUTO) 4.05 MIL/uL (4.06-5.63); RED CELL DISTRIBUTION WIDTH 24.9 % (12.1-16.2); WHITE BLOOD COUNT (AUTO) 11.2 K/uL (3.6-10.2)
[2024-03-24 08:33] LABS: DIFFERENTIAL COMMENT 1
[2024-03-24] MEDS ORDERED: LORAZEPAM 2 MG/1 ML VIAL ONE (08:59)
[2024-03-24] MEDS: LORAZEPAM 2 MG/1 ML VIAL IV ONE (09:09)
[2024-03-24 09:31] LABS: NT-PRO BNP 98 pg/mL (0-125)
[2024-03-24] MEDS ORDERED: REMEDY ESSENTIAL ZINC PASTE 113 GM TP PRN (10:00)
[2024-03-24] MEDS ORDERED: ACETAMINOPHEN 325 MG TABLET PO PRN (10:00)
[2024-03-24] MEDS ORDERED: MAGNESIUM HYDROXIDE 30 ML LIQUID UDC PO PRN (10:00)
[2024-03-24] MEDS ORDERED: HYDROMORPHONE 1 MG/1 ML DISP.SYRIN IV PRN (10:00)
[2024-03-24] MEDS ORDERED: DEXTROSE 50% 50 ML DISP.SYRIN IV PRN (10:00)
[2024-03-24] MEDS ORDERED: ONDANSETRON 4 MG/2 ML VIAL IV PRN (10:00)
[2024-03-24] MEDS ORDERED: INSULIN REGULAR, HUMAN 1000 UNIT/10 ML VIAL ONE (10:12)
[2024-03-24] MEDS: INSULIN REGULAR, HUMAN 1000 UNIT/10 ML VIAL IV ONE (10:15)
[2024-03-24 11:11] LABS: IRON, SERUM 28 ug/dL (50-175); LYMPHOCYTES % (MANUAL) 13 % (20-40); MONOCYTES % (MANUAL) 8 % (2-10); NEUTROPHILS % (MANUAL) 79 % (42-75); PLATELET ESTIMATE INCREASED
[2024-03-24 11:12] LABS: ANISOCYTOSIS 2+; HYPOCHROMASIA 1+
[2024-03-24] MEDS: BLOOD SUGAR DIAGNOSTIC 1 EACH STRIP VI SCH (12:00)
[2024-03-24] MEDS: INSULIN REGULAR, HUMAN 1000 UNIT/10 ML VIAL SQ PRN (13:22)
[2024-03-24 16:00] VITALS: BP 137/87; TEMP 95; O2SAT 97
[2024-03-24] MEDS: IV NS 1000 ML 1,000 ML IV PRN (16:55)
[2024-03-24] MEDS: HYDROMORPHONE 1 MG/1 ML DISP.SYRIN IV PRN (16:55)
[2024-03-24 20:00] VITALS: BP 131/83; TEMP 97.7
[2024-03-24] MEDS: INSULIN GLARGINE,HUM 300 UNITS/3 ML CARTRIDGE SQ SCH (20:17)
[2024-03-25 08:00] VITALS: BP 136/77; TEMP 98; O2SAT 95
[2024-03-25] MEDS: diphenhydrAMINE 50 MG/1 ML VIAL IV ONE (08:40)
[2024-03-25] MEDS: HYDROMORPHONE 1 MG/1 ML DISP.SYRIN IV ONE (08:40)
[2024-03-25 08:45] VITALS: BP 131/86; O2SAT 98
== END 2024-03-25 08:45 | disposition left against medical advice (07) | DRG 420 ==
LOC: ER 06:40 → TELE3 12:07 → TELE-TD3 12:22 → CCU 03-25 06:54
PROVIDERS: ADMIT Nurse Practitioner Acute Care; ATTEND Nurse Practitioner Acute Care
DX: E11.00 Type 2 diabetes mellitus with hyperosmolarity without nonketotic hyperglycemic-hyperosmolar coma (NKHHC) (principal); N17.0 Acute kidney failure with tubular necrosis; D57.419 Sickle-cell thalassemia, unspecified, with crisis; D50.9 Iron deficiency anemia, unspecified; Z59.02 Unsheltered homelessness; E87.1 Hypo-osmolality and hyponatremia; E86.1 Hypovolemia; G89.4 Chronic pain syndrome; Z91.199 Patient's noncompliance with other medical treatment and regimen due to unspecified reason; D75.839 Thrombocytosis, unspecified; D72.829 Elevated white blood cell count, unspecified; E87.5 Hyperkalemia; Z79.4 Long term (current) use of insulin; Z85.841 Personal history of malignant neoplasm of brain; Z88.5 Allergy status to narcotic agent; Z96.612 Presence of left artificial shoulder joint
CPT/HCPCS: 36415; 70030-TC; 71045; 83550; 84484; 85025; A4663; G0378; J1171; J1200; J1815; J2060; J2405; J7040

== ENCOUNTER 2024-03-30 20:49 | Inpatient (IN) | payer MEDICAID ==
[~2024-03-30] VITALS: Ht 182.9 cm; Wt 73.5 kg
[2024-03-30] MEDS: diphenhydrAMINE 50 MG/1 ML VIAL IV ONE ×2 (12:58→22:33)
[2024-03-30] MEDS: ONDANSETRON 4 MG/2 ML VIAL IV ONE (22:33)
[2024-03-30] MEDS ORDERED: diphenhydrAMINE 50 MG/1 ML VIAL ONE ×2 (22:33→23:53)
[2024-03-30] MEDS ORDERED: ONDANSETRON 4 MG/2 ML VIAL ONE (22:33)
[2024-03-30] MEDS: HYDROMORPHONE 1 MG/1 ML DISP.SYRIN IV ONE ×2 (22:33→23:57)
[2024-03-30] MEDS ORDERED: HYDROMORPHONE 1 MG/1 ML DISP.SYRIN ONE (22:33)
[2024-03-30] MEDS: IV NORMAL SALINE 500 ML IV ONE (22:49)
[2024-03-30 22:51] LABS: BASOPHILS # (AUTO) 0.1 K/UL (0.0-0.2); BASOPHILS % (AUTO) 1.3 % (0.0-2.0); DIFFERENTIAL COMMENT 0; EOSINOPHILS # (AUTO) 0.1 K/uL (0.0-0.7); EOSINOPHILS % (AUTO) 1.8 % (0.0-7.0); HEMATOCRIT 31.1 % (36.7-47.1); HEMOGLOBIN 9.9 g/dL (12.5-16.3); LYMPHOCYTES # (AUTO) 0.6 K/uL (0.8-4.8); LYMPHOCYTES % (AUTO) 7.6 % (20.5-51.5); MEAN CORPUSCULAR HEMOGLOBIN 24.7 uug (23.8-33.4); MEAN CORPUSCULAR HGB CONC 32 g/dL (32.5-36.3); MEAN CORPUSCULAR VOLUME 77.9 fL (73.0-96.2); MONOCYTES # (AUTO) 0.9 K/uL (0.1-1.30); MONOCYTES % (AUTO) 11.8 % (0.0-11.0); NEUTROPHILS # (AUTO) 5.6 K/uL (1.8-8.9); NEUTROPHILS % (AUTO) 77.5 % (38.5-71.5); PLATELET COUNT (AUTO) 378 K/uL (152-348); RED CELL DISTRIBUTION WIDTH 26.1 % (12.1-16.2); WHITE BLOOD COUNT (AUTO) 7.2 K/uL (3.6-10.2)
[2024-03-30 23:15] LABS: ALBUMIN 3.4 g/dL (3.4-5.0); BILIRUBIN,TOTAL 2.6 mg/dL (0.2-1.0); CALCIUM 9.4 mg/dL (8.5-10.1); CREATININE 1.6 mg/dL (0.6-1.3); POTASSIUM 5.4 mmol/L (3.5-5.1); TOTAL PROTEIN, SERUM 9.2 g/dL (6.4-8.2)
[2024-03-30] MEDS: IV NS 1000 ML 1,000 ML IV ONE (23:50)
[2024-03-31] MEDS: INSULIN REGULAR, HUMAN 1000 UNIT/10 ML VIAL IV ONE
[2024-03-31 00:01] LABS: RETICULOCYTE COUNT 2.9 % (0.4-2.2)
[2024-03-31] MEDS ORDERED: REMEDY ESSENTIAL ZINC PASTE 113 GM TP PRN (01:00)
[2024-03-31] MEDS ORDERED: SODIUM POLYSTYRENE SULFONATE 15 G/60 ML LIQUID UDC PO ONE (01:00)
[2024-03-31] MEDS ORDERED: INSULIN REGULAR, HUMAN 1000 UNIT/10 ML VIAL SQ SCH ×2 (01:00→07:30)
[2024-03-31] MEDS ORDERED: MAGNESIUM HYDROXIDE 30 ML LIQUID UDC PO PRN (01:00)
[2024-03-31] MEDS ORDERED: ACETAMINOPHEN 325 MG TABLET PO PRN (01:00)
[2024-03-31] MEDS ORDERED: CEFTRIAXONE /D5W 50ML IVPB **ER PYXIS IV ONE (01:06)
[2024-03-31] MEDS ORDERED: AZITHROMYCIN 500MG/ D5W 250ML IVPB **ER PYXIS ONLY IV ONE (01:07)
[2024-03-31] MEDS: CEFTRIAXONE 1 G in IV DEXTROSE 5% 50 ML IV ONE (01:10)
[2024-03-31] MEDS: AZITHROMYCIN IV 500 MG in IV DEXTROSE 5% 250 ML IV ONE (01:26)
[2024-03-31] MEDS: BLOOD SUGAR DIAGNOSTIC 1 EACH STRIP VI SCH ×2 (01:35→03:11)
[2024-03-31] MEDS ORDERED: HYDROMORPHONE 1 MG/1 ML DISP.SYRIN ONE (01:44)
[2024-03-31] MEDS: HYDROMORPHONE 1 MG/1 ML DISP.SYRIN IV PRN (01:48)
[2024-03-31 02:37] VITALS: BP 141/89; TEMP 97.8; O2SAT 96
[2024-03-31] MEDS ORDERED: DEXTROSE 50% 50 ML DISP.SYRIN IV PRN (03:00)
[2024-03-31] MEDS: diphenhydrAMINE 50 MG/1 ML VIAL IV PRN (03:05)
[2024-03-31] MEDS: INSULIN REGULAR, HUMAN 1000 UNIT/10 ML VIAL SQ PRN (03:09)
[2024-03-31] MEDS: IV NS 1000 ML 1,000 ML IV PRN (03:17)
[2024-03-31] MEDS: SODIUM POLYSTYRENE SULFONATE 15 G/60 ML LIQUID UDC PO ONE (03:22)
[2024-03-31 06:00] VITALS: BP 150/85; TEMP 97.9; O2SAT 95
[2024-03-31] MEDS: PANTOPRAZOLE SODIUM 40 MG TABLET.DR PO SCH (07:04)
[2024-03-31 11:35] VITALS: BP 139/76; TEMP 98.3; O2SAT 96
[2024-03-31 15:48] VITALS: BP 112/66; TEMP 97.8; O2SAT 95
[2024-03-31 17:52] LABS: *BILIRUBIN,URIN NEGATIVE (NEGATIVE); *BLOOD, URINE NEGATIVE (NEGATIVE); *CLARITY,URINE CLEAR (CLEAR); *COLOR,URINE LIGHT YELLOW (YELLOW); *KETONES,URINE NEGATIVE (NEGATIVE); *PROTEIN,URINE NEGATIVE (NEGATIVE); *UROBILINOGEN,URINE 0.2 E.U./dl (NORMAL); LEUKOCYTE ESTERASE ,URINE NEGATIVE (NEGATIVE); NITRITE, URINE NEGATIVE (NEGATIVE); UGLUCOSE 3+ (NEGATIVE)
[2024-03-31 17:59] LABS: BACTERIA,URINE NONE SEEN /HPF (NONE SEEN); RBC,URINE NONE SEEN /HPF (0-3)
[2024-03-31 18:00] LABS: SQUAMOUS EPITHELIAL CELL,UR NONE SEEN /HPF (NONE SEEN); WBC,URINE 0-3 /HPF (0-3)
[2024-03-31 18:01] LABS: *CREATININE,URINE 29.9 mg/dL (30-125); *URINE TOTAL PROTEIN RANDOM 6.4 mg/dL (<150/24HR)
[2024-03-31 18:17] LABS: BASOPHILS # (AUTO) 0.1 K/UL (0.0-0.2); BASOPHILS % (AUTO) 1.9 % (0.0-2.0); EOSINOPHILS # (AUTO) 1.2 K/uL (0.0-0.7); EOSINOPHILS % (AUTO) 15.7 % (0.0-7.0); HEMATOCRIT 30.2 % (36.7-47.1); HEMOGLOBIN 9.5 g/dL (12.5-16.3); LYMPHOCYTES # (AUTO) 0.5 K/uL (0.8-4.8); LYMPHOCYTES % (AUTO) 6.9 % (20.5-51.5); MEAN CORPUSCULAR HEMOGLOBIN 24.4 uug (23.8-33.4); MEAN CORPUSCULAR HGB CONC 32 g/dL (32.5-36.3); MEAN CORPUSCULAR VOLUME 77.5 fL (73.0-96.2); MONOCYTES # (AUTO) 0.8 K/uL (0.1-1.30); MONOCYTES % (AUTO) 11.2 % (0.0-11.0); NEUTROPHILS # (AUTO) 4.7 K/uL (1.8-8.9); NEUTROPHILS % (AUTO) 64.3 % (38.5-71.5); PLATELET COUNT (AUTO) 410 K/uL (152-348); WHITE BLOOD COUNT (AUTO) 7.4 K/uL (3.6-10.2)
[2024-03-31 18:23] LABS: DIFFERENTIAL COMMENT 1
[2024-03-31 18:32] LABS: URIC ACID 4.7 mg/dL (3.5-7.2)
[2024-03-31 18:39] LABS: CALCIUM 9.2 mg/dL (8.5-10.1); CREATININE 1.3 mg/dL (0.6-1.3); PHOSPHOROUS 3.6 mg/dL (2.5-4.9); POTASSIUM 4.3 mmol/L (3.5-5.1)
[2024-03-31 18:42] LABS: THYROID STIMULATING HORMONE 0.835 mIU/mL (0.358-3.740)
[2024-03-31] MEDS: INSULIN REGULAR, HUMAN 300 UNITS/3 ML VIAL SQ PRN (20:21)
[2024-04-01] MEDS: ONDANSETRON 4 MG/2 ML VIAL IV PRN (03:53)
[2024-04-01 06:49] LABS: BASOPHILS # (AUTO) 0.1 K/UL (0.0-0.2); BASOPHILS % (AUTO) 0.9 % (0.0-2.0); EOSINOPHILS # (AUTO) 0.2 K/uL (0.0-0.7); EOSINOPHILS % (AUTO) 2.2 % (0.0-7.0); HEMATOCRIT 30.7 % (36.7-47.1); HEMOGLOBIN 9.4 g/dL (12.5-16.3); LYMPHOCYTES # (AUTO) 0.4 K/uL (0.8-4.8); LYMPHOCYTES % (AUTO) 6.2 % (20.5-51.5); MEAN CORPUSCULAR HEMOGLOBIN 24.7 uug (23.8-33.4); MEAN CORPUSCULAR HGB CONC 31 g/dL (32.5-36.3); MEAN CORPUSCULAR VOLUME 80.7 fL (73.0-96.2); MONOCYTES # (AUTO) 1.4 K/uL (0.1-1.30); MONOCYTES % (AUTO) 21.1 % (0.0-11.0); NEUTROPHILS # (AUTO) 4.7 K/uL (1.8-8.9); NEUTROPHILS % (AUTO) 69.6 % (38.5-71.5); PLATELET COUNT (AUTO) 428 K/uL (152-348); RED CELL DISTRIBUTION WIDTH 25.7 % (12.1-16.2); WHITE BLOOD COUNT (AUTO) 6.8 K/uL (3.6-10.2)
[2024-04-01 06:53] LABS: DIFFERENTIAL COMMENT 1
[2024-04-01 07:05] LABS: ALBUMIN 2.9 g/dL (3.4-5.0); BILIRUBIN,DIRECT 0.2 mg/dL (0.0-0.2); BILIRUBIN,TOTAL 0.6 mg/dL (0.2-1.0); CALCIUM 9.1 mg/dL (8.5-10.1); CREATININE 1.6 mg/dL (0.6-1.3); MAGNESIUM 1.7 mg/dL (1.8-2.4); PHOSPHOROUS 3.5 mg/dL (2.5-4.9); TOTAL PROTEIN, SERUM 8.3 g/dL (6.4-8.2)
[2024-04-01 07:41] LABS: POTASSIUM 6.7 mmol/L (3.5-5.1)
[2024-04-01 08:00] VITALS: BP 159/97; TEMP 98.1
[2024-04-01] MEDS: SODIUM POLYSTYRENE SULFONATE 15 G/60 ML LIQUID UDC PO ONE (08:15)
[2024-04-01] MEDS: INSULIN REGULAR, HUMAN 1000 UNIT/10 ML VIAL IV ONE (08:29)
[2024-04-01] MEDS: FUROSEMIDE 40 MG/4 ML VIAL IV ONE (08:30)
[2024-04-01] MEDS: BLOOD SUGAR DIAGNOSTIC 1 EACH STRIP VI ONE (08:59)
[2024-04-01] MEDS: MAGNESIUM OXIDE 400 MG TABLET PO ONE (10:06)
[2024-04-01] MEDS: CALCIUM GLUCONATE IV 1 GM in IV NORMAL SALINE 100 ML IV ONE (10:06)
[2024-04-01] MEDS: diphenhydrAMINE 50 MG/1 ML VIAL IV PRN (10:07)
[2024-04-01] MEDS: HYDROMORPHONE 1 MG/1 ML DISP.SYRIN IV PRN (11:18)
[2024-04-01 11:23] VITALS: BP 115/80; O2SAT 100
[2024-04-01 11:26] VITALS: BP 121/83; TEMP 97.4; O2SAT 98
[2024-04-01 12:35] LABS: CREATININE 1.5 mg/dL (0.6-1.3)
[2024-04-01 12:36] LABS: POTASSIUM 5.4 mmol/L (3.5-5.1)
[2024-04-01 13:39] LABS: BAND % (MANUAL) 2 % (0-10); NEUTROPHILS % (MANUAL) 70 % (42-75)
[2024-04-01 13:40] LABS: ANISOCYTOSIS 3+; EOSINOPHILS % (MANUAL) 2 % (0-8); HYPOCHROMASIA 1+; LYMPHOCYTES % (MANUAL) 7 % (20-40); MONOCYTES % (MANUAL) 19 % (2-10); PLATELET ESTIMATE ADEQUATE
[2024-04-01 15:07] VITALS: BP 104/46; TEMP 98.4; O2SAT 94
[2024-04-01] MEDS: SODIUM ZIRCONIUM CYCLOSILICATE 10 GM POWD.PACK PO ONE (15:22)
[2024-04-01 16:12] VITALS: BP 118/74; O2SAT 95
[2024-04-01 19:45] VITALS: BP 144/83; TEMP 97.7; O2SAT 98
[2024-04-01] MEDS ORDERED: INSULIN GLARGINE,HUM 300 UNITS/3 ML CARTRIDGE SQ ONE (21:50)
[2024-04-01] MEDS: INSULIN GLARGINE,HUM 300 UNITS/3 ML CARTRIDGE SQ SCH (21:59)
[2024-04-02 06:10] LABS: PTH, INTACT 18 pg/mL (15-65)
[2024-04-02 07:46] LABS: BASOPHILS # (AUTO) 0.1 K/UL (0.0-0.2); EOSINOPHILS # (AUTO) 0.4 K/uL (0.0-0.7); EOSINOPHILS % (AUTO) 4.6 % (0.0-7.0); HEMATOCRIT 29.2 % (36.7-47.1); HEMOGLOBIN 9.4 g/dL (12.5-16.3); LYMPHOCYTES # (AUTO) 0.7 K/uL (0.8-4.8); LYMPHOCYTES % (AUTO) 9.2 % (20.5-51.5); MEAN CORPUSCULAR HEMOGLOBIN 24.6 uug (23.8-33.4); MEAN CORPUSCULAR HGB CONC 32 g/dL (32.5-36.3); MEAN CORPUSCULAR VOLUME 76.7 fL (73.0-96.2); MONOCYTES % (AUTO) 12.7 % (0.0-11.0); NEUTROPHILS # (AUTO) 5.9 K/uL (1.8-8.9); NEUTROPHILS % (AUTO) 72.5 % (38.5-71.5); PLATELET COUNT (AUTO) 551 K/uL (152-348); RED BLOOD CELL COUNT(AUTO) 3.81 MIL/uL (4.06-5.63); RED CELL DISTRIBUTION WIDTH 24.5 % (12.1-16.2); WHITE BLOOD COUNT (AUTO) 8.1 K/uL (3.6-10.2)
[2024-04-02 07:49] LABS: CREATININE 1.3 mg/dL (0.6-1.3); MAGNESIUM 1.4 mg/dL (1.8-2.4); POTASSIUM 5.2 mmol/L (3.5-5.1)
[2024-04-02 07:50] LABS: DIFFERENTIAL COMMENT 1
[2024-04-02 07:52] VITALS: BP 129/71; TEMP 98.2; O2SAT 97
[2024-04-02] MEDS: HYDROMORPHONE 2 MG/1 ML DISP.SYRIN IV PRN (08:02)
[2024-04-02 08:54] LABS: LYMPHOCYTES % (MANUAL) 23 % (20-40); MONOCYTES % (MANUAL) 6 % (2-10); NEUTROPHILS % (MANUAL) 63 % (42-75)
[2024-04-02 08:55] LABS: ANISOCYTOSIS 3+; BASOPHILS % (MANUAL) 8 % (0-2); HYPOCHROMASIA 1+; PLATELET ESTIMATE INCREASED
[2024-04-02] MEDS ORDERED: MAGNESIUM SULFATE/D5W 100 ML IV SCH (09:30)
[2024-04-05 06:06] LABS: A/G RATIO 0.8 (0.7-1.7); ALBUMIN 3.2 g/dL (2.9-4.4); ALPHA-1-GLOBULIN 0.3 g/dL (0.0-0.4); ALPHA-2-GLOBULIN 0.8 g/dL (0.4-1.0); BETA GLOBULIN 1.4 g/dL (0.7-1.3); GAMMA GLOBULIN 1.6 g/dL (0.4-1.8); GLOBULIN, TOTAL 4.1 g/dL (2.2-3.9); M-SPIKE Not Observed g/dL (Not Observed); PROTEIN, TOTAL 7.3 g/dL (6.0-8.5)
== END 2024-04-02 08:50 | disposition left against medical advice (07) | DRG 662 ==
LOC: ER 20:49 → MEDSURG3 03-31 01:00 → TELE3 04-01 10:00
PROVIDERS: ADMIT Nurse Practitioner Family; ATTEND Nurse Practitioner Acute Care
DX: D57.419 Sickle-cell thalassemia, unspecified, with crisis (principal); N17.0 Acute kidney failure with tubular necrosis; E11.00 Type 2 diabetes mellitus with hyperosmolarity without nonketotic hyperglycemic-hyperosmolar coma (NKHHC); R17 Unspecified jaundice; E11.65 Type 2 diabetes mellitus with hyperglycemia; D75.839 Thrombocytosis, unspecified; E83.42 Hypomagnesemia; E87.5 Hyperkalemia; E86.0 Dehydration; Z79.4 Long term (current) use of insulin; G89.4 Chronic pain syndrome; H40.9 Unspecified glaucoma; Z59.01 Sheltered homelessness; E86.1 Hypovolemia; J98.11 Atelectasis; Z91.119 Patient's noncompliance with dietary regimen due to unspecified reason; Z85.841 Personal history of malignant neoplasm of brain; Z88.5 Allergy status to narcotic agent; Z91.199 Patient's noncompliance with other medical treatment and regimen due to unspecified reason; Z96.612 Presence of left artificial shoulder joint; Z53.29 Procedure and treatment not carried out because of patient's decision for other reasons
CPT/HCPCS: 36415; 70030-TC; 71045; 82533; 83735; 83970; 84100; 84155; 84165; 84300; 84443; 84484; 84550; 85025; 93005; A4606; A4663; G0378; J0456; J0610; J0696; J1171; J1200; J1815; J1940; J2405; J7040

== ENCOUNTER 2024-04-20 22:42 | Emergency (ER) | payer MEDICAID ==
[~2024-04-20] VITALS: Ht 185.4 cm; Wt 81.6 kg
[2024-04-21] MEDS ORDERED: ONDANSETRON 4 MG/2 ML VIAL ONE (00:48)
[2024-04-21] MEDS ORDERED: HYDROMORPHONE 1 MG/1 ML DISP.SYRIN ONE ×2 (00:48→02:14)
[2024-04-21 00:56] LABS: *BILIRUBIN,URIN NEGATIVE (NEGATIVE); *CLARITY,URINE CLEAR (CLEAR); *COLOR,URINE YELLOW (YELLOW); *KETONES,URINE NEGATIVE (NEGATIVE); *PROTEIN,URINE NEGATIVE (NEGATIVE); *UROBILINOGEN,URINE 0.2 E.U./dl (NORMAL); LEUKOCYTE ESTERASE ,URINE NEGATIVE (NEGATIVE); NITRITE, URINE NEGATIVE (NEGATIVE)
[2024-04-21 00:57] LABS: *BLOOD, URINE TRACE (NEGATIVE); UGLUCOSE 1+ (NEGATIVE)
[2024-04-21] MEDS: HYDROMORPHONE 1 MG/1 ML DISP.SYRIN IV ONE ×2 (01:02→02:18)
[2024-04-21] MEDS: ONDANSETRON 4 MG/2 ML VIAL IV ONE (01:03)
[2024-04-21 01:04] LABS: *AMPHETAMINE, URINE POSITIVE (NEGATIVE); *BARBITURATE, URINE NEGATIVE (NEGATIVE); *BENZODIAZEPINE, URINE NEGATIVE (NEGATIVE); *CANNABINOID, URINE POSITIVE (NEGATIVE); *COCCAINE, URINE NEGATIVE (NEGATIVE); *OPIATE, URINE POSITIVE (NEGATIVE); *PHENCYCLIDINE SCREEN,URINE POSITIVE (NEGATIVE); FENTANYL, URINE NEGATIVE (NEGATIVE)
[2024-04-21 01:10] LABS: PLATELET COUNT (AUTO) 452 K/uL (152-348)
[2024-04-21 01:12] LABS: CALCIUM 9.1 mg/dL (8.5-10.1); CARBON DIOXIDE 25 mmol/L (21-32); CHLORIDE 103 mmol/L (98-107); CREATININE 1.4 mg/dL (0.6-1.3); GLUCOSE 213 mg/dL (74-106); POTASSIUM 4.4 mmol/L (3.5-5.1); SODIUM SERUM 140 mmol/L (136-145); UREA NITROGEN, BLOOD 20 mg/dL (7-18)
[2024-04-21 01:16] LABS: BASOPHILS # (AUTO) 0.1 K/UL (0.0-0.2); EOSINOPHILS # (AUTO) 0.2 K/uL (0.0-0.7); EOSINOPHILS % (AUTO) 1.4 % (0.0-7.0); HEMATOCRIT 23.5 % (36.7-47.1); HEMOGLOBIN 7.8 g/dL (12.5-16.3); LYMPHOCYTES % (AUTO) 7.1 % (20.5-51.5); MEAN CORPUSCULAR HEMOGLOBIN 23.7 uug (23.8-33.4); MEAN CORPUSCULAR HGB CONC 33 g/dL (32.5-36.3); MEAN CORPUSCULAR VOLUME 71.7 fL (73.0-96.2); MONOCYTES # (AUTO) 1.6 K/uL (0.1-1.30); MONOCYTES % (AUTO) 10.9 % (0.0-11.0); NEUTROPHILS # (AUTO) 11.4 K/uL (1.8-8.9); NEUTROPHILS % (AUTO) 79.6 % (38.5-71.5); RED BLOOD CELL COUNT(AUTO) 3.28 MIL/uL (4.06-5.63); RED CELL DISTRIBUTION WIDTH 24.7 % (12.1-16.2); WHITE BLOOD COUNT (AUTO) 14.3 K/uL (3.6-10.2)
[2024-04-21 01:17] LABS: ALANINE AMINOTRANSFERASE 32 U/L (16-63); ALBUMIN 2.8 g/dL (3.4-5.0); ALKALINE PHOSPHATASE 130 U/L (50-136); ASPARTATE AMINOTRANSFERASE 39 U/L (15-37); BILIRUBIN,TOTAL 0.3 mg/dL (0.2-1.0); DIFFERENTIAL COMMENT 1; TOTAL PROTEIN, SERUM 7.8 g/dL (6.4-8.2)
[2024-04-21 01:22] LABS: ETHANOL < 3 MG/DL (0-10)
[2024-04-21 01:31] LABS: BACTERIA,URINE NONE SEEN /HPF (NONE SEEN); RBC,URINE 0-3 /HPF (0-3); SQUAMOUS EPITHELIAL CELL,UR FEW /HPF (NONE SEEN); WBC,URINE NONE SEEN /HPF (0-3)
[2024-04-21 01:44] LABS: ANISOCYTOSIS 3+; EOSINOPHILS % (MANUAL) 3 % (0-8); HYPOCHROMASIA 1+; LYMPHOCYTES % (MANUAL) 11 % (20-40); MONOCYTES % (MANUAL) 5 % (2-10); NEUTROPHILS % (MANUAL) 81 % (42-75); PLATELET ESTIMATE ADEQUATE
[2024-04-21 01:45] LABS: TARGET CELLS 2+
[2024-04-21 02:03] LABS: RETICULOCYTE COUNT 2.3 % (0.4-2.2)
[2024-04-21] MEDS ORDERED: diphenhydrAMINE 50 MG/1 ML VIAL ONE (02:13)
[2024-04-21] MEDS: diphenhydrAMINE 50 MG/1 ML VIAL IV ONE (02:18)
[2024-04-21 02:26] VITALS: BP 130/80; TEMP 98; O2SAT 99
== END 2024-04-21 02:29 | disposition home or self-care (01) ==
LOC: ER 22:42
DX: D57.00 Hb-SS disease with crisis, unspecified (principal); F12.90 Cannabis use, unspecified, uncomplicated; R94.31 Abnormal electrocardiogram [ECG] [EKG]; Z96.612 Presence of left artificial shoulder joint; Z59.00 Homelessness unspecified; Z88.5 Allergy status to narcotic agent; Z88.7 Allergy status to serum and vaccine
CPT/HCPCS: 99285; 80053; 81001; 82962; 85007; 85025; 85044; 84484; 36415; 71045; 93005; 96374; 96375; 96376; 80320; 80307; J1200; J2405; J1171 ×2; 70030-TC; A4606; A4663; G0480

== ENCOUNTER 2024-04-25 04:29 | Emergency (ER) | payer MEDICAID ==
[~2024-04-25] VITALS: Ht 185.4 cm; Wt 81.6 kg
[2024-04-25] MEDS: HYDROMORPHONE 1 MG/1 ML DISP.SYRIN IV ONE ×4 (05:25→15:07)
[2024-04-25] MEDS: diphenhydrAMINE 50 MG/1 ML VIAL IV ONE ×4 (05:25→15:07)
[2024-04-25] MEDS: IV NS 1000 ML 1,000 ML IV ONE (05:25)
[2024-04-25] MEDS ORDERED: diphenhydrAMINE 50 MG/1 ML VIAL ONE ×4 (05:32→14:59)
[2024-04-25] MEDS ORDERED: HYDROMORPHONE 1 MG/1 ML DISP.SYRIN ONE ×4 (05:33→14:59)
[2024-04-25 06:13] LABS: *BILIRUBIN,URIN NEGATIVE (NEGATIVE); *BLOOD, URINE NEGATIVE (NEGATIVE); *CLARITY,URINE CLEAR (CLEAR); *COLOR,URINE YELLOW (YELLOW); *KETONES,URINE 1+ (NEGATIVE); *PROTEIN,URINE NEGATIVE (NEGATIVE); *UROBILINOGEN,URINE 0.2 E.U./dl (NORMAL); LEUKOCYTE ESTERASE ,URINE NEGATIVE (NEGATIVE); NITRITE, URINE NEGATIVE (NEGATIVE); PH,URINE 5.5 (5.0-8.0); UGLUCOSE 2+ (NEGATIVE)
[2024-04-25] MEDS ORDERED: ONDANSETRON 4 MG/2 ML VIAL ONE ×2 (06:15→07:26)
[2024-04-25] MEDS: ONDANSETRON 4 MG/2 ML VIAL IV ONE ×2 (06:23→07:36)
[2024-04-25 06:35] LABS: WBC,URINE 0-3 /HPF (0-3)
[2024-04-25 10:15] LABS: BASOPHILS # (AUTO) 0.1 K/UL (0.0-0.2); BASOPHILS % (AUTO) 1.1 % (0.0-2.0); DIFFERENTIAL COMMENT 0; EOSINOPHILS # (AUTO) 0.1 K/uL (0.0-0.7); EOSINOPHILS % (AUTO) 0.5 % (0.0-7.0); HEMATOCRIT 26.3 % (36.7-47.1); HEMOGLOBIN 8.3 g/dL (12.5-16.3); LYMPHOCYTES % (AUTO) 8.4 % (20.5-51.5); MEAN CORPUSCULAR HEMOGLOBIN 23.4 uug (23.8-33.4); MEAN CORPUSCULAR HGB CONC 32 g/dL (32.5-36.3); MEAN CORPUSCULAR VOLUME 74.3 fL (73.0-96.2); MONOCYTES # (AUTO) 1.8 K/uL (0.1-1.30); MONOCYTES % (AUTO) 14.6 % (0.0-11.0); NEUTROPHILS # (AUTO) 9.2 K/uL (1.8-8.9); NEUTROPHILS % (AUTO) 75.4 % (38.5-71.5); PLATELET COUNT (AUTO) 466 K/uL (152-348); RED BLOOD CELL COUNT(AUTO) 3.53 MIL/uL (4.06-5.63); WHITE BLOOD COUNT (AUTO) 12.3 K/uL (3.6-10.2)
[2024-04-25 10:19] LABS: RETICULOCYTE COUNT 3.2 % (0.4-2.2)
[2024-04-25 10:23] LABS: ALANINE AMINOTRANSFERASE 23 U/L (16-63); ALBUMIN 2.9 g/dL (3.4-5.0); ALKALINE PHOSPHATASE 145 U/L (50-136); ASPARTATE AMINOTRANSFERASE 7 U/L (15-37); BILIRUBIN,TOTAL 0.5 mg/dL (0.2-1.0); CALCIUM 9.2 mg/dL (8.5-10.1); CARBON DIOXIDE 27 mmol/L (21-32); CHLORIDE 101 mmol/L (98-107); CREATININE 1.5 mg/dL (0.6-1.3); MAGNESIUM 2.6 mg/dL (1.8-2.4); PHOSPHOROUS 3.3 mg/dL (2.5-4.9); POTASSIUM 5.2 mmol/L (3.5-5.1); SODIUM SERUM 137 mmol/L (136-145); TOTAL PROTEIN, SERUM 8.4 g/dL (6.4-8.2); UREA NITROGEN, BLOOD 22 mg/dL (7-18)
[2024-04-25 10:32] LABS: GLUCOSE 487 mg/dL (74-106)
[2024-04-25 10:38] LABS: ACETONE, SERUM NEGATIVE (NEGATIVE)
[2024-04-25] MEDS ORDERED: INSULIN NPH 1,000 UNITS/10 ML VIAL SQ ONE (11:50)
[2024-04-25] MEDS ORDERED: INSULIN REGULAR, HUMAN 1000 UNIT/10 ML VIAL ONE (11:55)
[2024-04-25] MEDS: INSULIN REGULAR, HUMAN 1000 UNIT/10 ML VIAL IV ONE (12:00)
[2024-04-25 13:00] LABS: *AMPHETAMINE, URINE POSITIVE (NEGATIVE); *BARBITURATE, URINE NEGATIVE (NEGATIVE); *BENZODIAZEPINE, URINE NEGATIVE (NEGATIVE); *CANNABINOID, URINE POSITIVE (NEGATIVE); *COCCAINE, URINE NEGATIVE (NEGATIVE); *OPIATE, URINE NEGATIVE (NEGATIVE); *PHENCYCLIDINE SCREEN,URINE POSITIVE (NEGATIVE); FENTANYL, URINE NEGATIVE (NEGATIVE)
[2024-04-25 13:49] LABS: EOSINOPHILS % (MANUAL) 2 % (0-8); LYMPHOCYTES % (MANUAL) 6 % (20-40); MONOCYTES % (MANUAL) 15 % (2-10); NEUTROPHILS % (MANUAL) 77 % (42-75)
[2024-04-25 13:50] LABS: ANISOCYTOSIS 2+; HYPOCHROMASIA 1+; PLATELET ESTIMATE INCREASED
[2024-04-25 15:57] VITALS: BP 128/71; TEMP 208.4; O2SAT 98
== END 2024-04-25 15:58 | disposition home or self-care (01) ==
LOC: ER 04:33
DX: M79.10 Myalgia, unspecified site (principal); G89.4 Chronic pain syndrome; E11.65 Type 2 diabetes mellitus with hyperglycemia; D57.1 Sickle-cell disease without crisis; E11.10 Type 2 diabetes mellitus with ketoacidosis without coma; F12.90 Cannabis use, unspecified, uncomplicated; Z59.00 Homelessness unspecified; Z79.4 Long term (current) use of insulin; Z88.5 Allergy status to narcotic agent; Z88.7 Allergy status to serum and vaccine
CPT/HCPCS: 99285; 96374; 96361; 96375; 71045; 80053; 81001; 82009; 82962 ×2; 83735; 84100; 85025; 85044; 84484; 93005; 96376; 80307; 85007; J1200 ×4; J2405 ×2; J1171 ×4; J1815; J7040; 70030-TC; A4606; A4663

== ENCOUNTER 2024-04-29 00:52 | Emergency (ER) | payer MEDICAID ==
[~2024-04-29] VITALS: Ht 185.4 cm; Wt 81.6 kg
[2024-04-29] MEDS: IV NS 1000 ML 1,000 ML IV ONE (02:19)
[2024-04-29] MEDS ORDERED: ONDANSETRON 4 MG/2 ML VIAL ONE (02:20)
[2024-04-29] MEDS ORDERED: HYDROMORPHONE 1 MG/1 ML DISP.SYRIN ONE (02:20)
[2024-04-29] MEDS ORDERED: diphenhydrAMINE 50 MG/1 ML VIAL ONE ×3 (02:20→08:03)
[2024-04-29] MEDS: HYDROMORPHONE 1 MG/1 ML DISP.SYRIN IV ONE ×3 (02:24→08:14)
[2024-04-29] MEDS: ONDANSETRON 4 MG/2 ML VIAL IV ONE (02:26)
[2024-04-29] MEDS: diphenhydrAMINE 50 MG/1 ML VIAL IV ONE ×3 (02:27→08:14)
[2024-04-29 02:31] LABS: BASOPHILS # (AUTO) 0.2 K/UL (0.0-0.2); BASOPHILS % (AUTO) 1.6 % (0.0-2.0); EOSINOPHILS # (AUTO) 0.1 K/uL (0.0-0.7); EOSINOPHILS % (AUTO) 0.5 % (0.0-7.0); HEMATOCRIT 26.5 % (36.7-47.1); HEMOGLOBIN 8.1 g/dL (12.5-16.3); LYMPHOCYTES % (AUTO) 16.3 % (20.5-51.5); MEAN CORPUSCULAR HEMOGLOBIN 23.6 uug (23.8-33.4); MEAN CORPUSCULAR HGB CONC 31 g/dL (32.5-36.3); MEAN CORPUSCULAR VOLUME 76.6 fL (73.0-96.2); MONOCYTES # (AUTO) 1.2 K/uL (0.1-1.30); MONOCYTES % (AUTO) 9.7 % (0.0-11.0); NEUTROPHILS # (AUTO) 8.8 K/uL (1.8-8.9); NEUTROPHILS % (AUTO) 71.9 % (38.5-71.5); PLATELET COUNT (AUTO) 562 K/uL (152-348); RED BLOOD CELL COUNT(AUTO) 3.46 MIL/uL (4.06-5.63); RED CELL DISTRIBUTION WIDTH 26.1 % (12.1-16.2); RETICULOCYTE COUNT 3.7 % (0.4-2.2); WHITE BLOOD COUNT (AUTO) 12.3 K/uL (3.6-10.2)
[2024-04-29 02:45] LABS: ALANINE AMINOTRANSFERASE 16 U/L (16-63); ALBUMIN 3.1 g/dL (3.4-5.0); ALKALINE PHOSPHATASE 157 U/L (50-136); ASPARTATE AMINOTRANSFERASE 7 U/L (15-37); BILIRUBIN,TOTAL 0.7 mg/dL (0.2-1.0); CALCIUM 9.2 mg/dL (8.5-10.1); CARBON DIOXIDE 24 mmol/L (21-32); CHLORIDE 90 mmol/L (98-107); CREATININE 1.9 mg/dL (0.6-1.3); POTASSIUM 4.6 mmol/L (3.5-5.1); SODIUM SERUM 126 mmol/L (136-145); UREA NITROGEN, BLOOD 27 mg/dL (7-18)
[2024-04-29 03:09] LABS: GLUCOSE 947 mg/dL (74-106)
[2024-04-29 03:27] LABS: DIFFERENTIAL COMMENT 1
[2024-04-29] MEDS ORDERED: NORMAL SALINE IV ONE (03:30)
[2024-04-29] MEDS ORDERED: HUMAN IV ONE (03:30)
[2024-04-29] MEDS ORDERED: INSULIN REGULAR IV ONE (03:30)
[2024-04-29] MEDS ORDERED: INSULIN REGULAR, HUMAN 1000 UNIT/10 ML VIAL ONE (03:39)
[2024-04-29 03:45] LABS: ETHANOL < 3 MG/DL (0-10)
[2024-04-29] MEDS: INSULIN REGULAR, HUMAN 1000 UNIT/10 ML VIAL IV ONE ×2 (03:45→05:30)
[2024-04-29] MEDS ORDERED: LORAZEPAM 2 MG/1 ML VIAL ONE (04:45)
[2024-04-29] MEDS: LORAZEPAM 2 MG/1 ML VIAL IV ONE (05:00)
[2024-04-29] MEDS: INSULIN REGULAR, HUMAN 100 UNIT in IV NORMAL SALINE 99 ML IV PRN (05:19)
[2024-04-29] MEDS ORDERED: HYDROMORPHONE 2 MG/1 ML DISP.SYRIN ONE ×2 (07:20→08:03)
[2024-04-29 08:43] VITALS: BP 116/73; O2SAT 98
== END 2024-04-29 08:44 | disposition home or self-care (01) ==
LOC: ER 01:01
DX: D57.00 Hb-SS disease with crisis, unspecified (principal); E10.65 Type 1 diabetes mellitus with hyperglycemia; F12.90 Cannabis use, unspecified, uncomplicated; Z59.00 Homelessness unspecified; Z79.4 Long term (current) use of insulin; Z88.5 Allergy status to narcotic agent; Z88.7 Allergy status to serum and vaccine; Z96.612 Presence of left artificial shoulder joint
CPT/HCPCS: 80053; 82009; 82962 ×2; 85025; 85044; 36415; 99285; 96361; 96374; 96375; 96376; 80320; J1200 ×3; J2060; J2405; J1171 ×3; J1815; J7040; 70030-TC; A4606; A4663; G0480

== ENCOUNTER 2024-05-07 04:37 | Emergency (ER) | payer MEDICAID ==
[~2024-05-07] VITALS: Ht 180.3 cm; Wt 77.1 kg
[2024-05-07] MEDS ORDERED: diphenhydrAMINE 50 MG/1 ML VIAL ONE ×5 (08:05→15:28)
[2024-05-07] MEDS ORDERED: HYDROMORPHONE 2 MG/1 ML DISP.SYRIN ONE ×6 (08:05→15:28)
[2024-05-07] MEDS ORDERED: ONDANSETRON 4 MG/2 ML VIAL ONE ×2 (08:05→13:55)
[2024-05-07] MEDS: diphenhydrAMINE 50 MG/1 ML VIAL IV ONE ×6 (08:07→15:41)
[2024-05-07] MEDS: IV NORMAL SALINE 1000 ML BAG IV ONE ×2 (08:07→10:31)
[2024-05-07] MEDS: HYDROMORPHONE 1 MG/1 ML DISP.SYRIN IV ONE ×6 (08:07→15:41)
[2024-05-07] MEDS: ONDANSETRON 4 MG/2 ML VIAL IV ONE (08:07)
[2024-05-07 09:42] LABS: ALBUMIN 3.3 g/dL (3.4-5.0); BILIRUBIN,DIRECT 0.1 mg/dL (0.0-0.2); BILIRUBIN,TOTAL 0.7 mg/dL (0.2-1.0); CALCIUM 10.2 mg/dL (8.5-10.1); CREATININE 1.6 mg/dL (0.6-1.3)
[2024-05-07] MEDS ORDERED: INSULIN REGULAR, HUMAN 1000 UNIT/10 ML VIAL ONE (10:20)
[2024-05-07 10:25] LABS: BASOPHILS # (AUTO) 0.1 K/UL (0.0-0.2); BASOPHILS % (AUTO) 1.3 % (0.0-2.0); EOSINOPHILS # (AUTO) 0.1 K/uL (0.0-0.7); EOSINOPHILS % (AUTO) 0.6 % (0.0-7.0); HEMATOCRIT 25.6 % (36.7-47.1); HEMOGLOBIN 8.2 g/dL (12.5-16.3); LYMPHOCYTES # (AUTO) 1.3 K/uL (0.8-4.8); LYMPHOCYTES % (AUTO) 12.1 % (20.5-51.5); MEAN CORPUSCULAR HEMOGLOBIN 23.2 uug (23.8-33.4); MEAN CORPUSCULAR HGB CONC 32 g/dL (32.5-36.3); MEAN CORPUSCULAR VOLUME 72.8 fL (73.0-96.2); MONOCYTES # (AUTO) 0.9 K/uL (0.1-1.30); MONOCYTES % (AUTO) 8.1 % (0.0-11.0); NEUTROPHILS # (AUTO) 8.6 K/uL (1.8-8.9); NEUTROPHILS % (AUTO) 77.9 % (38.5-71.5); PLATELET COUNT (AUTO) 529 K/uL (152-348); RED BLOOD CELL COUNT(AUTO) 3.52 MIL/uL (4.06-5.63); RED CELL DISTRIBUTION WIDTH 24.8 % (12.1-16.2); WHITE BLOOD COUNT (AUTO) 11.1 K/uL (3.6-10.2)
[2024-05-07 10:27] LABS: DIFFERENTIAL COMMENT 1
[2024-05-07] MEDS: INSULIN REGULAR, HUMAN 1000 UNIT/10 ML VIAL IV ONE (10:33)
[2024-05-07] MEDS: CALCIUM GLUCONATE IV 1 GM in IV DEXTROSE 5% 50 ML IV ONE (10:50)
[2024-05-07 10:58] LABS: LYMPHOCYTES % (MANUAL) 17 % (20-40); MONOCYTES % (MANUAL) 11 % (2-10); NEUTROPHILS % (MANUAL) 72 % (42-75); PLATELET ESTIMATE ADEQUATE
[2024-05-07] MEDS: BLOOD SUGAR DIAGNOSTIC 1 EACH STRIP VI SCH (11:20)
[2024-05-07] MEDS: INSULIN REGULAR, HUMAN 100 UNITS in IV NORMAL SALINE 100 ML IV ONE (11:50)
[2024-05-07] MEDS ORDERED: MAGNESIUM HYDROXIDE 30 ML LIQUID UDC PO PRN (13:45)
[2024-05-07] MEDS ORDERED: IV NS 1000 ML 1,000 ML IV PRN (13:45)
[2024-05-07] MEDS ORDERED: ACETAMINOPHEN 325 MG TABLET PO PRN (13:45)
[2024-05-07] MEDS ORDERED: REMEDY ESSENTIAL ZINC PASTE 113 GM TP PRN (13:45)
[2024-05-07] MEDS: ONDANSETRON 4 MG/2 ML VIAL IV PRN (14:04)
[2024-05-07] MEDS: HYDROMORPHONE 1 MG/1 ML DISP.SYRIN IV PRN (14:04)
[2024-05-07 15:40] VITALS: O2SAT 98
[2024-05-08] MEDS ORDERED: PANTOPRAZOLE SODIUM 40 MG TABLET.DR PO SCH (07:00)
== END 2024-05-07 15:44 | disposition left against medical advice (07) ==
LOC: ER 04:52
DX: D57.419 Sickle-cell thalassemia, unspecified, with crisis (principal); E87.1 Hypo-osmolality and hyponatremia; R73.9 Hyperglycemia, unspecified; E87.5 Hyperkalemia; D50.9 Iron deficiency anemia, unspecified; E86.0 Dehydration; E86.1 Hypovolemia; F12.90 Cannabis use, unspecified, uncomplicated; G89.4 Chronic pain syndrome; N17.0 Acute kidney failure with tubular necrosis; Z59.00 Homelessness unspecified; Z79.4 Long term (current) use of insulin; Z88.5 Allergy status to narcotic agent; Z88.7 Allergy status to serum and vaccine; Z96.612 Presence of left artificial shoulder joint
CPT/HCPCS: 80076; 80048; 82962 ×3; 85007; 85025; 36415; 71045; 93005; 99285; 96361; 96365; 96367; 96375; 96376; J0610; J1200 ×5; J2405 ×2; J1171 ×6; J1815; J7040; 70030-TC; A4606; A4663

== ENCOUNTER 2024-05-09 14:55 | Emergency (ER) | payer MEDICAID | END 2024-05-09 16:34 | disposition left against medical advice (07) | LOC: ER 14:55 | DX: D57.00 Hb-SS disease with crisis, unspecified (principal); Z53.21 Procedure and treatment not carried out due to patient leaving prior to being seen by health care provider ==

== ENCOUNTER 2024-05-16 05:41 | Inpatient (IN) | payer MEDICAID ==
[~2024-05-16] VITALS: Ht 182.9 cm; Wt 63.5 kg
[2024-05-16] MEDS ORDERED: diphenhydrAMINE 50 MG/1 ML VIAL ONE ×6 (07:22→21:33)
[2024-05-16] MEDS ORDERED: HYDROMORPHONE 2 MG/1 ML DISP.SYRIN ONE ×5 (07:22→17:31)
[2024-05-16] MEDS: diphenhydrAMINE 50 MG/1 ML VIAL IV ONE ×4 (07:36→12:06)
[2024-05-16] MEDS: HYDROMORPHONE 1 MG/1 ML DISP.SYRIN IV ONE ×5 (07:37→12:08)
[2024-05-16 07:45] LABS: BASOPHILS # (AUTO) 0.1 K/UL (0.0-0.2); BASOPHILS % (AUTO) 0.7 % (0.0-2.0); EOSINOPHILS # (AUTO) 1.6 K/uL (0.0-0.7); EOSINOPHILS % (AUTO) 13.8 % (0.0-7.0); HEMATOCRIT 26.1 % (36.7-47.1); HEMOGLOBIN 8.6 g/dL (12.5-16.3); LYMPHOCYTES # (AUTO) 0.8 K/uL (0.8-4.8); LYMPHOCYTES % (AUTO) 6.8 % (20.5-51.5); MEAN CORPUSCULAR HGB CONC 33 g/dL (32.5-36.3); MEAN CORPUSCULAR VOLUME 75.8 fL (73.0-96.2); NEUTROPHILS # (AUTO) 8.4 K/uL (1.8-8.9); NEUTROPHILS % (AUTO) 70.7 % (38.5-71.5); RED BLOOD CELL COUNT(AUTO) 3.44 MIL/uL (4.06-5.63); RED CELL DISTRIBUTION WIDTH 24.9 % (12.1-16.2); WHITE BLOOD COUNT (AUTO) 11.9 K/uL (3.6-10.2)
[2024-05-16 08:00] LABS: DIFFERENTIAL COMMENT 1; PLATELET COUNT (AUTO) 385 K/uL (152-348)
[2024-05-16 08:06] LABS: CREATININE 1.6 mg/dL (0.6-1.3)
[2024-05-16 08:13] LABS: POTASSIUM 6.3 mmol/L (3.5-5.1)
[2024-05-16] MEDS: IV NS 1000 ML 1,000 ML IV ONE (08:50)
[2024-05-16] MEDS: INSULIN REGULAR, HUMAN 1000 UNIT/10 ML VIAL IV ONE (08:55)
[2024-05-16] MEDS ORDERED: ONDANSETRON 4 MG/2 ML VIAL ONE (10:27)
[2024-05-16] MEDS ORDERED: REMEDY ESSENTIAL ZINC PASTE 113 GM TP PRN (10:30)
[2024-05-16] MEDS ORDERED: ONDANSETRON 4 MG/2 ML VIAL IV PRN (10:30)
[2024-05-16] MEDS ORDERED: MAGNESIUM HYDROXIDE 30 ML LIQUID UDC PO PRN (10:30)
[2024-05-16] MEDS ORDERED: ACETAMINOPHEN 325 MG TABLET PO PRN (10:30)
[2024-05-16] MEDS ORDERED: DEXTROSE 50% 50 ML DISP.SYRIN IV PRN (10:30)
[2024-05-16] MEDS: ONDANSETRON 4 MG/2 ML VIAL IV ONE (10:31)
[2024-05-16] MEDS: BLOOD SUGAR DIAGNOSTIC 1 EACH STRIP VI SCH (11:53)
[2024-05-16] MEDS: INSULIN REGULAR, HUMAN 1000 UNIT/10 ML VIAL SQ PRN (11:59)
[2024-05-16] MEDS: IV NS 1000 ML 1,000 ML IV PRN (12:00)
[2024-05-16] MEDS: HYDROMORPHONE 2 MG/1 ML DISP.SYRIN IV PRN ×2 (14:50→17:35)
[2024-05-16] MEDS: diphenhydrAMINE 50 MG/1 ML VIAL IV PRN ×3 (14:50→21:42)
[2024-05-16 21:03] VITALS: O2SAT 98
[2024-05-16] MEDS ORDERED: HYDROMORPHONE 1 MG/1 ML DISP.SYRIN ONE (21:33)
[2024-05-16] MEDS: HYDROMORPHONE 1 MG/1 ML DISP.SYRIN IV PRN (21:42)
== END 2024-05-16 23:55 | disposition left against medical advice (07) | DRG 422 ==
LOC: ER 05:48 → TRANSITION 12:43 → TELE3 21:56
PROVIDERS: ADMIT Nurse Practitioner Acute Care; ATTEND Nurse Practitioner Acute Care
DX: E87.5 Hyperkalemia (principal); E86.0 Dehydration; N17.0 Acute kidney failure with tubular necrosis; D57.1 Sickle-cell disease without crisis; E87.1 Hypo-osmolality and hyponatremia; E11.65 Type 2 diabetes mellitus with hyperglycemia; E86.1 Hypovolemia; G89.4 Chronic pain syndrome; Z59.02 Unsheltered homelessness; Z91.199 Patient's noncompliance with other medical treatment and regimen due to unspecified reason; Z96.612 Presence of left artificial shoulder joint; Z88.5 Allergy status to narcotic agent; F17.210 Nicotine dependence, cigarettes, uncomplicated
CPT/HCPCS: 36415; 71045; 85025; G0378; J1171; J1200; J2405; J7040

== ENCOUNTER 2024-06-02 12:02 | Emergency (ER) | payer MEDICAID ==
[~2024-06-02] VITALS: Ht 172.7 cm; Wt 75.3 kg
[2024-06-02] MEDS: IV NORMAL SALINE 1000 ML BAG IV ONE (16:09)
[2024-06-02] MEDS: diphenhydrAMINE 50 MG/1 ML VIAL IV ONE ×2 (16:09→18:21)
[2024-06-02] MEDS ORDERED: diphenhydrAMINE 50 MG/1 ML VIAL ONE ×2 (16:10→18:14)
[2024-06-02] MEDS ORDERED: HYDROMORPHONE 2 MG/1 ML DISP.SYRIN ONE ×2 (16:11→18:14)
[2024-06-02] MEDS: HYDROMORPHONE 1 MG/1 ML DISP.SYRIN IV ONE ×2 (16:20→18:21)
[2024-06-02 16:37] LABS: BASOPHILS # (AUTO) 0.1 K/UL (0.0-0.2); BASOPHILS % (AUTO) 1.1 % (0.0-2.0); HEMATOCRIT 25.9 % (36.7-47.1); HEMOGLOBIN 8.2 g/dL (12.5-16.3); LYMPHOCYTES # (AUTO) 0.7 K/uL (0.8-4.8); MEAN CORPUSCULAR HEMOGLOBIN 24.4 uug (23.8-33.4); MEAN CORPUSCULAR HGB CONC 32 g/dL (32.5-36.3); MEAN CORPUSCULAR VOLUME 76.6 fL (73.0-96.2); MONOCYTES # (AUTO) 1.1 K/uL (0.1-1.30); MONOCYTES % (AUTO) 12.5 % (0.0-11.0); NEUTROPHILS # (AUTO) 6.6 K/uL (1.8-8.9); NEUTROPHILS % (AUTO) 78.4 % (38.5-71.5); PLATELET COUNT (AUTO) 674 K/uL (152-348); RED BLOOD CELL COUNT(AUTO) 3.38 MIL/uL (4.06-5.63); RED CELL DISTRIBUTION WIDTH 26.4 % (12.1-16.2); WHITE BLOOD COUNT (AUTO) 8.5 K/uL (3.6-10.2)
[2024-06-02 17:03] LABS: DIFFERENTIAL COMMENT 1
[2024-06-02 17:18] LABS: ALANINE AMINOTRANSFERASE 19 U/L (16-63); ALBUMIN 3.3 g/dL (3.4-5.0); ALKALINE PHOSPHATASE 122 U/L (50-136); ASPARTATE AMINOTRANSFERASE 19 U/L (15-37); BILIRUBIN,DIRECT 0.1 mg/dL (0.0-0.2); BILIRUBIN,TOTAL 0.5 mg/dL (0.2-1.0); CALCIUM 9.2 mg/dL (8.5-10.1); CARBON DIOXIDE 24 mmol/L (21-32); CHLORIDE 97 mmol/L (98-107); CREATININE 1.8 mg/dL (0.6-1.3); POTASSIUM 5.2 mmol/L (3.5-5.1); SODIUM SERUM 135 mmol/L (136-145); UREA NITROGEN, BLOOD 36 mg/dL (7-18)
[2024-06-02 17:27] LABS: GLUCOSE 553 mg/dL (74-106)
[2024-06-02] MEDS ORDERED: INSULIN REGULAR, HUMAN 1000 UNIT/10 ML VIAL ONE (18:36)
[2024-06-02] MEDS: INSULIN REGULAR, HUMAN 1000 UNIT/10 ML VIAL IV ONE (18:48)
[2024-06-02] MEDS: IV NS 1000 ML 1,000 ML IV ONE (19:30)
[2024-06-02 20:55] LABS: CALCIUM 8.8 mg/dL (8.5-10.1); CREATININE 1.9 mg/dL (0.6-1.3); POTASSIUM 5.3 mmol/L (3.5-5.1)
[2024-06-02] MEDS ORDERED: INSULIN REGULAR, HUMAN 100 UNITS in IV NORMAL SALINE 100 ML IV ONE (21:45)
[2024-06-02 22:27] VITALS: BP 128/78; TEMP 98; O2SAT 99
== END 2024-06-02 22:29 | disposition left against medical advice (07) ==
LOC: ER 12:02
DX: G89.4 Chronic pain syndrome (principal); M25.552 Pain in left hip; E11.10 Type 2 diabetes mellitus with ketoacidosis without coma; F12.90 Cannabis use, unspecified, uncomplicated; Z59.00 Homelessness unspecified; Z88.5 Allergy status to narcotic agent; Z88.7 Allergy status to serum and vaccine; Z96.612 Presence of left artificial shoulder joint
CPT/HCPCS: 99284; 96374; 96361 ×2; 96375; 80076; 80048 ×2; 82009; 82962; 85025; 85730; 84484; 36415; 73502; 96376; 98960; J1171 ×2; J1200 ×2; J1815; J7040; A4606; A4663

== ENCOUNTER 2024-11-17 09:37 | Inpatient (IN) | payer MEDICAID, OTHER ==
[~2024-11-17] VITALS: Ht 167.6 cm; Wt 68.0 kg
[2024-11-17] VITALS (9 sets, daily range): BP systolic 96–157; BP diastolic 62–97; TEMP 100.9–101.2; O2SAT 95–99
[2024-11-17] MEDS ORDERED: diphenhydrAMINE 50 MG/1 ML VIAL ONE ×2 (10:09→14:19)
[2024-11-17] MEDS ORDERED: HYDROMORPHONE 2 MG/1 ML DISP.SYRIN ONE ×2 (10:09→14:19)
[2024-11-17] MEDS ORDERED: LORAZEPAM 2 MG/1 ML VIAL ONE (10:10)
[2024-11-17] MEDS: diphenhydrAMINE 50 MG/1 ML VIAL IV ONE ×2 (10:17→14:22)
[2024-11-17] MEDS: HYDROMORPHONE 1 MG/1 ML DISP.SYRIN IV ONE ×2 (10:17→14:22)
[2024-11-17] MEDS: IV NS 1000 ML 1,000 ML IV ONE (10:17)
[2024-11-17] MEDS: LORAZEPAM 2 MG/1 ML VIAL IV ONE (10:17)
[2024-11-17 11:09] LABS: PLATELET COUNT (AUTO) 791 K/uL (152-348); RED BLOOD CELL COUNT(AUTO) 3.19 MIL/uL (4.06-5.63); RED CELL DISTRIBUTION WIDTH 18.5 % (12.1-16.2); WHITE BLOOD COUNT (AUTO) 7.2 K/uL (3.6-10.2)
[2024-11-17 11:21] LABS: ASPARTATE AMINOTRANSFERASE 12.0 U/L (15-37); CREATININE 1.5 mg/dL (0.6-1.3); SODIUM SERUM 130.0 mmol/L (136-145); TOTAL PROTEIN, SERUM 7.8 g/dL (6.4-8.2); UREA NITROGEN, BLOOD 24.0 mg/dL (7-18)
[2024-11-17] MEDS: IV NORMAL SALINE 1000 ML BAG IV ONE (11:29)
[2024-11-17] MEDS ORDERED: ONDANSETRON 4 MG/2 ML VIAL IV PRN (13:15)
[2024-11-17] MEDS ORDERED: INSULIN REGULAR, HUMAN 10 UNIT in IV NORMAL SALINE 100 ML IV ONE (13:30)
[2024-11-17] MEDS: INSULIN REGULAR, HUMAN 100 UNITS in IV NORMAL SALINE 100 ML IV ONE (13:40)
[2024-11-17] MEDS: BLOOD SUGAR DIAGNOSTIC 1 EACH STRIP VI SCH ×2 (13:50→21:28)
[2024-11-17] MEDS: IV NS 1000 ML 1,000 ML IV PRN (15:16)
[2024-11-17] MEDS: INSULIN REGULAR, HUMAN 100 UNITS in IV NORMAL SALINE 100 ML IV PRN (15:25)
[2024-11-17 15:58] LABS: CREATININE 1.4 mg/dL (0.6-1.3); SODIUM SERUM 137.0 mmol/L (136-145); UREA NITROGEN, BLOOD 22.0 mg/dL (7-18)
[2024-11-17] MEDS ORDERED: MAGNESIUM SULFATE/D5W 100 ML IV SCH (17:00)
[2024-11-17] MEDS: MAGNESIUM SULFATE/D5W 100 ML IV SCH (17:24)
[2024-11-17] MEDS: IV D5 1/2 NS 1000 ML 1,000 ML IV ONE (18:38)
[2024-11-17 19:32] LABS: CREATININE 1.1 mg/dL (0.6-1.3); SODIUM SERUM 140.0 mmol/L (136-145); UREA NITROGEN, BLOOD 18.0 mg/dL (7-18)
[2024-11-17] MEDS ORDERED: DEXTROSE 50% 50 ML DISP.SYRIN IV PRN (20:00)
[2024-11-17] MEDS ORDERED: INSULIN REGULAR, HUMAN 300 UNITS/3 ML VIAL SQ PRN (20:00)
[2024-11-17] MEDS ORDERED: INSULIN GLARGINE,HUM 300 UNITS/3 ML CARTRIDGE SQ ONE (21:07)
[2024-11-17] MEDS ORDERED: INSULIN REGULAR, HUMAN 1000 UNIT/10 ML VIAL ONE (21:08)
[2024-11-17] MEDS: INSULIN GLARGINE,HUM 300 UNITS/3 ML CARTRIDGE SQ SCH (21:23)
[2024-11-17] MEDS: INSULIN REGULAR, HUMAN 1000 UNIT/10 ML VIAL SQ PRN (21:27)
[2024-11-17 23:28] LABS: CREATININE 1.2 mg/dL (0.6-1.3); SODIUM SERUM 139.0 mmol/L (136-145); UREA NITROGEN, BLOOD 15.0 mg/dL (7-18)
[2024-11-18] VITALS (17 sets, daily range): BP systolic 94–147; BP diastolic 57–131; TEMP 97.5–99.5; O2SAT 93–99
[2024-11-18] MEDS: diphenhydrAMINE 50 MG/1 ML VIAL IV PRN (01:16)
[2024-11-18] MEDS: HYDROMORPHONE 1 MG/1 ML DISP.SYRIN IV PRN (01:17)
[2024-11-18 03:28] LABS: CREATININE 1.2 mg/dL (0.6-1.3); SODIUM SERUM 135.0 mmol/L (136-145); UREA NITROGEN, BLOOD 13.0 mg/dL (7-18)
[2024-11-18 06:17] LABS: ABG BASE EXCESS -2.4 mmol/L (-2.0-3.0); ABG HCO3 21.6 mmol/L (21.0-28.0); ABG PCO2 34.3 mmHg (35.0-48.0); ABG PH 7.417 (7.350-7.450); ABG PO2 63.8 mmHg (83.0-108.0); ABG SITE RIGHT RADIAL; ABG TOTAL HEMOGLOBIN 10.1 G/dL (13.5-17.5); AaDO2 92.9 mmHg; FIO2 21.0 %
[2024-11-18 08:38] LABS: CREATININE 1.3 mg/dL (0.6-1.3); SODIUM SERUM 135.0 mmol/L (136-145); UREA NITROGEN, BLOOD 14.0 mg/dL (7-18)
[2024-11-18] MEDS: HYDROMORPHONE 1 MG/1 ML DISP.SYRIN IV ONE (08:44)
[2024-11-18] MEDS: INSULIN GLARGINE,HUM 300 UNITS/3 ML CARTRIDGE SQ SCH (08:51)
[2024-11-18] MEDS: PANTOPRAZOLE SODIUM 40 MG VIAL IV SCH (08:58)
[2024-11-18] MEDS ORDERED: INSULIN GLARGINE,HUM 300 UNITS/3 ML CARTRIDGE SQ SCH (09:00)
[2024-11-18] MEDS: NEUTRA PHOS PACKET PO ONE (16:53)
== END 2024-11-18 18:40 | disposition left against medical advice (07) | DRG 420 ==
LOC: ER 09:37 → CCU 14:46 → MEDSURG3 11-18 15:10
PROVIDERS: ADMIT Nurse Practitioner Family; ATTEND Nurse Practitioner Family
DX: E11.10 Type 2 diabetes mellitus with ketoacidosis without coma (principal); N17.0 Acute kidney failure with tubular necrosis; E44.1 Mild protein-calorie malnutrition; E88.09 Other disorders of plasma-protein metabolism, not elsewhere classified; D57.1 Sickle-cell disease without crisis; D63.8 Anemia in other chronic diseases classified elsewhere; Z59.02 Unsheltered homelessness; Z96.612 Presence of left artificial shoulder joint; Z79.4 Long term (current) use of insulin; Z88.5 Allergy status to narcotic agent; Z91.199 Patient's noncompliance with other medical treatment and regimen due to unspecified reason; E87.1 Hypo-osmolality and hyponatremia; E86.0 Dehydration; E87.5 Hyperkalemia; G89.29 Other chronic pain; Z53.29 Procedure and treatment not carried out because of patient's decision for other reasons
CPT/HCPCS: 36415; 36600; 83735; 84100; 85025; A4606; A4663; G0378; J1171; J1200; J1815; J2060; J2470; J3475; J7040

== ENCOUNTER 2025-05-04 23:32 | Inpatient (IN) | payer MEDICAID, OTHER ==
[~2025-05-04] VITALS: Ht 180.3 cm; Wt 63.5 kg
[~2025-05-04 23:32] MED LIST changes: -HYDR-3980 PO; +INSU3INS6 SQ; -NALO4SPR BNOSTRILS
[2025-05-05] MEDS ORDERED: HYDROMORPHONE 2 MG/1 ML DISP.SYRIN ONE (00:22)
[2025-05-05] MEDS ORDERED: diphenhydrAMINE 50 MG/1 ML VIAL ONE ×2 (00:22→01:53)
[2025-05-05] MEDS: HYDROMORPHONE 1 MG/1 ML DISP.SYRIN IV ONE (00:28)
[2025-05-05] MEDS: diphenhydrAMINE 50 MG/1 ML VIAL IV ONE ×2 (00:28→01:56)
[2025-05-05 00:29] LABS: PLATELET COUNT (AUTO) 264 K/uL (152-348); RED BLOOD CELL COUNT(AUTO) 3.43 MIL/uL (4.06-5.63); RED CELL DISTRIBUTION WIDTH 22.8 % (12.1-16.2); WHITE BLOOD COUNT (AUTO) 10.9 K/uL (3.6-10.2)
[2025-05-05 00:34] LABS: CREATININE 1.0 mg/dL (0.6-1.3); SODIUM SERUM 134.0 mmol/L (136-145); UREA NITROGEN, BLOOD 10.0 mg/dL (7-18)
[2025-05-05 00:40] LABS: ASPARTATE AMINOTRANSFERASE 21.0 U/L (15-37); LACTATE DEHYDROGENASE 280.0 U/L (85-227); TOTAL PROTEIN, SERUM 6.5 g/dL (6.4-8.2)
[2025-05-05] MEDS: IV LACTATED RINGERS SOLUTION 1,000 ML BAG IV ONE (00:48)
[2025-05-05] MEDS ORDERED: INSULIN REGULAR, HUMAN 1000 UNIT/10 ML VIAL ONE (01:27)
[2025-05-05] MEDS ORDERED: POTASSIUM CHLORIDE 20 MEQ TAB.PRT.SR ONE (01:27)
[2025-05-05 01:30] VITALS: BP 133/62
[2025-05-05] MEDS ORDERED: MAGNESIUM HYDROXIDE 30 ML LIQUID UDC PO PRN (01:30)
[2025-05-05] MEDS ORDERED: REMEDY ESSENTIAL ZINC PASTE 113 GM TP PRN (01:30)
[2025-05-05] MEDS ORDERED: ACETAMINOPHEN 325 MG TABLET PO PRN (01:30)
[2025-05-05] MEDS ORDERED: ONDANSETRON 4 MG/2 ML VIAL IV PRN (01:30)
[2025-05-05] MEDS ORDERED: DEXTROSE 50% 50 ML DISP.SYRIN IV PRN (01:30)
[2025-05-05] MEDS: POTASSIUM CHLORIDE 20 MEQ TAB.PRT.SR PO ONE (01:32)
[2025-05-05] MEDS: INSULIN REGULAR, HUMAN 1000 UNIT/10 ML VIAL IV ONE (01:33)
[2025-05-05 01:42] LABS: NEUTROPHILS % (MANUAL) 84 % (42-75)
[2025-05-05 01:43] LABS: BASOPHILS % (MANUAL) 1 % (0-2); EOSINOPHILS % (MANUAL) 2 % (0-8); LYMPHOCYTES % (MANUAL) 7 % (20-40); MONOCYTES % (MANUAL) 6 % (2-10); PLATELET ESTIMATE ADEQUATE
[2025-05-05 01:51] LABS: NUCLEATED RED BLOOD CELLS 10.0 /100WBC
[2025-05-05] MEDS: HYDROMORPHONE 1 MG/1 ML DISP.SYRIN IV PRN (01:55)
[2025-05-05] MEDS: IV NS 1000 ML 1,000 ML IV PRN (03:37)
[2025-05-05] MEDS: diphenhydrAMINE 50 MG/1 ML VIAL IV PRN (03:48)
[2025-05-05 04:26] VITALS: BP 144/62; TEMP 98.7; O2SAT 96
[2025-05-05] MEDS: BLOOD SUGAR DIAGNOSTIC 1 EACH STRIP VI SCH (06:42)
[2025-05-05] MEDS: INSULIN REGULAR, HUMAN 1000 UNIT/10 ML VIAL SQ PRN (09:25)
[2025-05-05] MEDS: INSULIN GLARGINE,HUM 300 UNITS/3 ML CARTRIDGE SQ SCH (09:29)
[2025-05-05 11:45] VITALS: BP 125/58; TEMP 98.9; O2SAT 99
[2025-05-05] MEDS: HYDROMORPHONE 2 MG/1 ML DISP.SYRIN IV PRN (13:03)
== END 2025-05-05 13:45 | disposition left against medical advice (07) | DRG 662 ==
LOC: ER 23:46 → MEDSURG3 05-05 01:50 → OBSVTOIN 05-05 01:51
PROVIDERS: ADMIT Nurse Practitioner Acute Care; ATTEND Student in an Organized Health Care Education/Training Program
DX: D57.00 Hb-SS disease with crisis, unspecified (principal); E11.10 Type 2 diabetes mellitus with ketoacidosis without coma; E44.0 Moderate protein-calorie malnutrition; E87.1 Hypo-osmolality and hyponatremia; Z79.4 Long term (current) use of insulin; Z91.199 Patient's noncompliance with other medical treatment and regimen due to unspecified reason; R79.89 Other specified abnormal findings of blood chemistry; D56.9 Thalassemia, unspecified; Z96.612 Presence of left artificial shoulder joint; Z88.5 Allergy status to narcotic agent; Z85.841 Personal history of malignant neoplasm of brain; R53.1 Weakness; R55 Syncope and collapse; D72.829 Elevated white blood cell count, unspecified; R60.0 Localized edema; Z76.5 Malingerer [conscious simulation]
CPT/HCPCS: 36415; 70030-TC; 71045; 83615; 84484; A4663; G0378; J1171; J1200; J1815; J7120; Q0163